=== PATIENT | male | born 1975 | race Caucasian/White ===

== ENCOUNTER 2016-11-24 19:02 | Emergency (ER) | payer MEDICARE, OTHER ==
[~2016-11-24] VITALS: Ht 180.3 cm; Wt 75.0 kg
[~2016-11-24 19:02] MED LIST: ALDACTONE 100M100 MG PO; ALDACTONE 25MG25 M1 PO; ASPIRIN 32325 MG/TAB PO; ASPIRIN 81M81 MG/TA2 PO; ASPIRIN E.C. 8181 MG PO; ATIVAN 0.50.5 MG/TAB PO; ATIVAN 1MG T1 MG/TAB PO; ATIVAN 2MG/ML2 MG/ML IV; BENADRYL50 MG PO; CEFTIN500 MG PO; CEPHALEXIN500 M1 PO; CLONAZEPAM PO; DAZIDOX10 MG PO; DILAUDID 2MG TAB2 MG PO; DILAUDID 4MG TAB4 MG PO; DOXYCYCLINE 10100 MG PO; FLOMAX 0.40.4 MG/CAP PO; FOLIC ACID0.4 MG PO; IBU800 M1 PO; K-DUR20 MEQ PO; KLOR-CON M2020 MEQ PO; LASIX 20MG TABL20 MG PO; LASIX 40MG TABL40 MG PO; LEADER CLE17 GM/Dose PO; LEVSIN0.125 M1 PO; LIBRIUM 25M25 MG/CAP PO; MELATONIN5 M1 SL; METHOTREXATE25 MG/M2 IJ; MIRTAZAPINE7.5 MG PO; MORPHINE 1515 MG/TAB PO; MOTRIN 400400 MG/TAB PO; MULTI VITAMINS1 TAB PO; NATURE'S BLEND100 M2 PO; NEURONTIN100 MG/CAP PO; NEURONTIN300 MG/CAP PO; NIGHT-TIME COL300 ML PO; NORCO 325 MG-101 TAB PO; NORCO 325 MG-51 TAB PO; NORCO 325 MG-7.1 TAB PO; OMNICEF 300MG300 MG PO; PERCOCET 325 MG1 TA2 PO; PHENERGAN 25 TA25 MG PO; PREDNISONE20 MG PO; PRIL40 PO; PRILOSEC40 MG PO; PRINIVIL10 MG PO; PROMETHAZINE12.5 M5 PO; ROXICODONE 55 MG/TAB PO; SENOKOT S 50 MG1 TAB PO; ULTRAM 50MG TAB50 MG PO; VALIUM 5MG T5 MG/TAB PO; VITAMIN D 50,1.25 MG PO; ZOFRAN 4MG T4 MG/TAB PO; ZOFRAN ODT4 MG PO; ZOHYDRO ER10 MG PO
[2016-11-24 19:04] VITALS: TEMP 99.1
[2016-11-24] MEDS ORDERED: NORCO 325 MG-51 TAB PO (19:19)
[2016-11-24 19:39] LABS: PH 6 (5-8); SQUAMOUS EPITHELIAL None Seen /hpf; URINE APPEARANCE Clear; URINE BACTERIA None Seen /hpf; URINE BILIRUBIN Negative (NEGATIVE); URINE BLOOD Negative (NEGATIVE); URINE COLOR Yellow; URINE GLUCOSE Negative (NEGATIVE); URINE KETONE Negative (NEGATIVE); URINE RBC 0-2 /hpf; URINE UROBILINOGEN >=4.0 mg/dL (NEGATIVE); URINE WBC 0-2 /hpf
[2016-11-24 19:44] LABS: BASO % 0.2 % (0.0-2.0); EOS # 0.2 (0.0-0.7); EOS % 2.2 % (0-4.0); GRAN # 7.7 (1.4-6.5); GRAN % 75.4 % (42.2-75.2); HEMATOCRIT 31.8 % (42.0-52.0); HEMOGLOBIN 9.1 g/dl (13.5-18.0); LYMPH # 1.1 (1.2-3.4); LYMPH % 10.7 % (20.0-51.0); MEAN CELL VOLUME 74 fl (80.0-100.0); MEAN CORPUSCULAR HEMOGLOBIN 21 pg (27.0-31.0); MEAN CORPUSCULAR HGB CONC 29 g/dl (33.0-37.0); MEAN PLATELET VOLUME 9.9 fl (7.4-10.4); MONO # 1.1 (0.1-0.6); MONO % 10.4 % (1.7-9.3); PLATELET COUNT 185 K/mm3 (130-400); REDCELL DISTRIBUTION WIDTH-CV 22.4 % (11.5-14.5); WHITE BLOOD COUNT 10.2 K/mm3 (4.8-10.8)
[2016-11-24 19:45] LABS: ADJUSTED CALCIUM 9.3 mg/dL (8.4-10.2); ALBUMIN 3.6 gm/dL (3.5-5.0); BILIRUBIN,TOTAL 1.6 mg/dL (0.0-1.0); CREATININE, serum 0.57 mg/dL (0.66-1.25); POTASSIUM 4.9 mmol/L (3.4-5.0); TOTAL PROTEIN 7.7 gm/dL (6.4-8.2)
[2016-11-24 21:01] VITALS: BP 111/77; PULSE 71
[2016-11-24] MEDS ORDERED: CIPRO 500MG TA500 MG PO (21:04)
== END 2016-11-24 22:05 | disposition home or self-care (01) ==
LOC: COL.ER 19:02
PROVIDERS: Emergency Medicine
DX: R10.2 Pelvic and perineal pain (principal); K74.60 Unspecified cirrhosis of liver; R18.8 Other ascites
CPT/HCPCS: J1170; J2405; J7030; Q9967

== ENCOUNTER 2017-03-24 16:08 | Emergency (ER) | payer MEDICARE ==
[~2017-03-24] VITALS: Ht 182.9 cm; Wt 79.5 kg
[~2017-03-24 16:08] MED LIST changes: +CIPRO 500MG TA500 MG PO
[2017-03-24 16:14] VITALS: BP 122/79; TEMP 99
[2017-03-24 17:19] LABS: BASO % 0.1 % (0.0-2.0); EOS # 1.6 (0.0-0.7); EOS % 13.4 % (0-4.0); GRAN # 8.6 (1.4-6.5); GRAN % 70.2 % (42.2-75.2); LYMPH # 1.7 (1.2-3.4); MEAN CELL VOLUME 75 fl (80.0-100.0); MEAN CORPUSCULAR HGB CONC 30 g/dl (33.0-37.0); MONO # 0.2 (0.1-0.6); MONO % 1.8 % (1.7-9.3); PLATELET COUNT 170 K/mm3 (130-400); RED BLOOD COUNT 4.19 M/mm3 (4.20-5.60); REDCELL DISTRIBUTION WIDTH-CV 19.3 % (11.5-14.5); WHITE BLOOD COUNT 12.2 K/mm3 (4.8-10.8)
[2017-03-24 17:20] LABS: HEMATOCRIT 31.2 % (42.0-52.0); HEMOGLOBIN 9.3 g/dl (13.5-18.0); MEAN CORPUSCULAR HEMOGLOBIN 22 pg (27.0-31.0)
[2017-03-24 17:29] LABS: C-REACTIVE PROTEIN 1.5 mg/dL (0.0-0.9); CALCIUM 8.8 mg/dL (8.4-10.2); CREATININE, serum 0.49 mg/dL (0.66-1.25); POTASSIUM 4.3 mmol/L (3.4-5.0)
[2017-03-24] MEDS ORDERED: AMOXICILLIN 8751 TAB PO (19:41)
[2017-03-24] MEDS ORDERED: NORCO 325 MG-7.1 TAB PO (19:42)
[2017-03-24 20:07] VITALS: PULSE 87
== END 2017-03-24 20:07 | disposition home or self-care (01) ==
LOC: COL.ER 16:08
PROVIDERS: Emergency Medicine
DX: S61.251A Open bite of left index finger without damage to nail, initial encounter (principal); L03.012 Cellulitis of left finger; W54.0XXA Bitten by dog, initial encounter; Y92.009 Unspecified place in unspecified non-institutional (private) residence as the place of occurrence of the external cause
CPT/HCPCS: J0696; J1170; J2405

== ENCOUNTER 2017-04-23 02:07 | Emergency (ER) | payer MEDICARE ==
[~2017-04-23] VITALS: Ht 182.9 cm; Wt 75.0 kg
[~2017-04-23 02:07] MED LIST changes: +AMOXICILLIN 8751 TAB PO
[2017-04-23 02:08] VITALS: TEMP 98.1
[2017-04-23 02:48] LABS: MEAN CELL VOLUME 74 fl (80.0-100.0); MEAN CORPUSCULAR HGB CONC 29 g/dl (33.0-37.0); MEAN PLATELET VOLUME 9.4 fl (7.4-10.4); PLATELET COUNT 120 K/mm3 (130-400); RED BLOOD COUNT 3.49 M/mm3 (4.20-5.60); REDCELL DISTRIBUTION WIDTH-CV 19.1 % (11.5-14.5); WHITE BLOOD COUNT 14.1 K/mm3 (4.8-10.8)
[2017-04-23 02:49] LABS: HEMATOCRIT 25.9 % (42.0-52.0); HEMOGLOBIN 7.5 g/dl (13.5-18.0); MEAN CORPUSCULAR HEMOGLOBIN 21 pg (27.0-31.0)
[2017-04-23 02:50] LABS: ADD PATHOLOGY DIFF REVIEW NO
[2017-04-23 02:56] LABS: ANISOCYTOSIS 2+; BAND 2 % (0-10); EOSINOPHIL 33 % (0-4); HYPOCHROMIA 3+; MICROCYTOSIS 2+; NEUTROPHILS 48 % (42.0-75.2); PLATELET ESTIMATE NORMAL (NORMAL); TOTAL CELLS COUNTED 100
[2017-04-23 03:01] LABS: ADJUSTED CALCIUM 9.2 mg/dL (8.4-10.2); ALANINE AMINOTRANSFERASE 27 U/L (21-72); ALBUMIN 2.8 gm/dL (3.5-5.0); ALKALINE PHOSPHATASE 142 U/L (50-136); ANION GAP 7 mmol/L (7-16); BILIRUBIN,TOTAL 0.5 mg/dL (0.0-1.0); BLOOD UREA NITROGEN 7 mg/dL (9-20); C-REACTIVE PROTEIN 0.8 mg/dL (0.0-0.9); CALCIUM 8.2 mg/dL (8.4-10.2); CARBON DIOXIDE 23 mmol/L (22-30); CHLORIDE 108 mmol/L (98-107); CREATININE, serum 0.58 mg/dL (0.66-1.25); GLUCOSE 90 mg/dL (74-106); LIPASE 58 U/L (23-300); POTASSIUM 3.4 mmol/L (3.4-5.0); SODIUM 137 mmol/L (137-145); TOTAL PROTEIN 5.9 gm/dL (6.4-8.2)
[2017-04-23 03:10] LABS: TROPONIN-I < 0.012 ng/mL (0.000-0.034)
[2017-04-23] MEDS ORDERED: NEURONTIN800 MG/TAB PO (03:17)
[2017-04-23] MEDS ORDERED: PROVENTIL0.09 MG/A1 IH (03:17)
[2017-04-23] MEDS ORDERED: XANAX 1MG1 MG PO (03:18)
[2017-04-23 07:21] VITALS: BP 114/84; PULSE 81
== END 2017-04-23 07:25 | disposition short-term general hospital (02) ==
LOC: COL.ER 02:07 → MEDICAL 04:08 → COL.ER 04:08
PROVIDERS: Emergency Medicine
DX: S09.90XA Unspecified injury of head, initial encounter (principal); R07.9 Chest pain, unspecified; D64.9 Anemia, unspecified; R11.10 Vomiting, unspecified; R19.8 Other specified symptoms and signs involving the digestive system and abdomen; K70.30 Alcoholic cirrhosis of liver without ascites; I25.10 Atherosclerotic heart disease of native coronary artery without angina pectoris; Z95.5 Presence of coronary angioplasty implant and graft; F17.200 Nicotine dependence, unspecified, uncomplicated; S00.93XA Contusion of unspecified part of head, initial encounter; S00.83XA Contusion of other part of head, initial encounter; S20.212A Contusion of left front wall of thorax, initial encounter; Y04.0XXA Assault by unarmed brawl or fight, initial encounter
CPT/HCPCS: C9113; J2270; J2405; J7030

== ENCOUNTER 2017-06-03 12:07 | Inpatient (IN) | payer MEDICARE, MEDICAID ==
[~2017-06-03] VITALS: Ht 182.9 cm; Wt 77.0 kg
[~2017-06-03 12:07] MED LIST changes: +NEURONTIN800 MG/TAB PO; +PROVENTIL0.09 MG/A1 IH; +XANAX 1MG1 MG PO
[2017-06-03 12:50] LABS: BASO % 0.2 % (0.0-2.0); EOS # 8.5 (0.0-0.7); EOS % 42.7 % (0-4.0); GRAN # 8.5 (1.4-6.5); GRAN % 42.5 % (42.2-75.2); LYMPH % 10.2 % (20.0-51.0); MEAN CELL VOLUME 77 fl (80.0-100.0); MEAN CORPUSCULAR HGB CONC 29 g/dl (33.0-37.0); MEAN PLATELET VOLUME 9.4 fl (7.4-10.4); MONO # 0.8 (0.1-0.6); PLATELET COUNT 155 K/mm3 (130-400); REDCELL DISTRIBUTION WIDTH-CV 21.9 % (11.5-14.5)
[2017-06-03 13:08] LABS: ADJUSTED CALCIUM 9.5 mg/dL (8.4-10.2); ALBUMIN 2.7 gm/dL (3.5-5.0); BILIRUBIN,TOTAL 0.6 mg/dL (0.0-1.0); C-REACTIVE PROTEIN 7.1 mg/dL (0.0-0.9); CALCIUM 8.5 mg/dL (8.4-10.2); CREATININE, serum 0.56 mg/dL (0.66-1.25); POTASSIUM 4.5 mmol/L (3.4-5.0); TOTAL PROTEIN 5.8 gm/dL (6.4-8.2)
[2017-06-03 13:18] LABS: HEMATOCRIT 28.6 % (42.0-52.0); HEMOGLOBIN 8.2 g/dl (13.5-18.0); MEAN CORPUSCULAR HEMOGLOBIN 22 pg (27.0-31.0); WHITE BLOOD COUNT 19.9 K/mm3 (4.8-10.8)
[2017-06-03 13:26] LABS: ADD PATHOLOGY DIFF REVIEW NO
[2017-06-03 13:32] LABS: BAND 2 % (0-10); EOSINOPHIL 15 % (0-4); NEUTROPHILS 62 % (42.0-75.2); PLATELET ESTIMATE NORMAL (NORMAL); TOTAL CELLS COUNTED 100
[2017-06-03 13:33] LABS: ANISOCYTOSIS 1+; HYPOCHROMIA 1+
[2017-06-03 15:17] VITALS: BP 113/68; PULSE 105; TEMP 99.7
[2017-06-03] MEDS ORDERED: MULTI VITAMINS1 TAB PO (15:45)
[2017-06-03] MEDS ORDERED: B-121000 MCG PO (15:46)
[2017-06-03 16:00] VITALS: BP 113/68; PULSE 105; TEMP 99.7
[2017-06-03 20:08] VITALS: BP 125/74; PULSE 106; TEMP 98.9
[2017-06-03 23:23] VITALS: BP 117/73; PULSE 110; TEMP 98.7
[2017-06-03 23:23] LABS: PH 5 (5-8); SQUAMOUS EPITHELIAL None Seen /hpf; URINE APPEARANCE Clear; URINE BACTERIA None Seen /hpf; URINE BILIRUBIN Negative (NEGATIVE); URINE BLOOD Negative (NEGATIVE); URINE COLOR Amber; URINE GLUCOSE 3+ (NEGATIVE); URINE KETONE Negative (NEGATIVE); URINE UROBILINOGEN >=4.0 mg/dL (NEGATIVE)
[2017-06-04 02:47] VITALS: BP 106/58; PULSE 104; TEMP 101.8
[2017-06-04 06:20] VITALS: TEMP 100.5
[2017-06-04 07:48] LABS: MEAN CELL VOLUME 76 fl (80.0-100.0); MEAN CORPUSCULAR HGB CONC 29 g/dl (33.0-37.0); MEAN PLATELET VOLUME 9.5 fl (7.4-10.4); PLATELET COUNT 175 K/mm3 (130-400); RED BLOOD COUNT 3.81 M/mm3 (4.20-5.60); REDCELL DISTRIBUTION WIDTH-CV 21.9 % (11.5-14.5); WHITE BLOOD COUNT 19.5 K/mm3 (4.8-10.8)
[2017-06-04 08:05] VITALS: BP 103/68; PULSE 91; TEMP 98.3
[2017-06-04 08:07] LABS: HEMATOCRIT 28.9 % (42.0-52.0); HEMOGLOBIN 8.4 g/dl (13.5-18.0); MEAN CORPUSCULAR HEMOGLOBIN 22 pg (27.0-31.0)
[2017-06-04 08:19] LABS: CALCIUM 7.8 mg/dL (8.4-10.2); CREATININE, serum 0.52 mg/dL (0.66-1.25)
[2017-06-04 12:34] VITALS: BP 104/72; PULSE 87; TEMP 98.5
[2017-06-04 16:58] VITALS: BP 105/66; PULSE 106; TEMP 98.5
[2017-06-04 20:47] VITALS: BP 119/69; PULSE 108; TEMP 98.1
[2017-06-05] VITALS (7 sets, daily range): BP systolic 96–125; BP diastolic 52–83; PULSE 63–104; TEMP 98.1–98.8
[2017-06-05 07:30] LABS: BASO % 0.1 % (0.0-2.0); EOS # 10.1 (0.0-0.7); GRAN # 5.6 (1.4-6.5); GRAN % 30.1 % (42.2-75.2); MEAN CELL VOLUME 76 fl (80.0-100.0); MEAN CORPUSCULAR HGB CONC 29 g/dl (33.0-37.0); MEAN PLATELET VOLUME 9.2 fl (7.4-10.4); MONO # 0.8 (0.1-0.6); MONO % 4.4 % (1.7-9.3); PLATELET COUNT 184 K/mm3 (130-400); RED BLOOD COUNT 3.49 M/mm3 (4.20-5.60); REDCELL DISTRIBUTION WIDTH-CV 22.5 % (11.5-14.5); WHITE BLOOD COUNT 18.6 K/mm3 (4.8-10.8)
[2017-06-05 07:37] LABS: CALCIUM 7.9 mg/dL (8.4-10.2); CREATININE, serum 0.49 mg/dL (0.66-1.25); MAGNESIUM 1.7 mg/dL (1.6-2.3); POTASSIUM 3.8 mmol/L (3.4-5.0)
[2017-06-05 07:38] LABS: HEMATOCRIT 26.6 % (42.0-52.0); HEMOGLOBIN 7.8 g/dl (13.5-18.0); MEAN CORPUSCULAR HEMOGLOBIN 22 pg (27.0-31.0)
[2017-06-06] VITALS (9 sets, daily range): BP systolic 98–135; BP diastolic 57–91; PULSE 87–107; TEMP 97.3–98.5
[2017-06-06 03:28] LABS: BASO % 0.1 % (0.0-2.0); EOS # 7.3 (0.0-0.7); GRAN # 4.3 (1.4-6.5); GRAN % 30.2 % (42.2-75.2); LYMPH # 1.9 (1.2-3.4); LYMPH % 13.3 % (20.0-51.0); MEAN CELL VOLUME 77 fl (80.0-100.0); MEAN CORPUSCULAR HGB CONC 29 g/dl (33.0-37.0); MEAN PLATELET VOLUME 8.8 fl (7.4-10.4); MONO # 0.8 (0.1-0.6); MONO % 5.3 % (1.7-9.3); PLATELET COUNT 167 K/mm3 (130-400); RED BLOOD COUNT 3.37 M/mm3 (4.20-5.60); REDCELL DISTRIBUTION WIDTH-CV 22.5 % (11.5-14.5); WHITE BLOOD COUNT 14.4 K/mm3 (4.8-10.8)
[2017-06-06 03:29] LABS: EOS % 50.8 % (0-4.0); HEMATOCRIT 25.9 % (42.0-52.0); HEMOGLOBIN 7.5 g/dl (13.5-18.0); MEAN CORPUSCULAR HEMOGLOBIN 22 pg (27.0-31.0)
[2017-06-06 03:45] LABS: CREATININE, serum 0.51 mg/dL (0.66-1.25)
[2017-06-06 03:49] LABS: VANCOMYCIN TROUGH 7.45 ug/mL (7.00-20.00)
[2017-06-07 00:47] VITALS: BP 124/78; PULSE 107; TEMP 97.6
[2017-06-07 04:45] VITALS: BP 106/75; PULSE 98; TEMP 97.9
[2017-06-07 07:26] LABS: BASO % 0.1 % (0.0-2.0); EOS % 0.3 % (0-4.0); GRAN # 5.8 (1.4-6.5); GRAN % 76.5 % (42.2-75.2); LYMPH # 0.9 (1.2-3.4); LYMPH % 12.2 % (20.0-51.0); MEAN CELL VOLUME 77 fl (80.0-100.0); MEAN CORPUSCULAR HGB CONC 28 g/dl (33.0-37.0); MEAN PLATELET VOLUME 9.3 fl (7.4-10.4); MONO # 0.8 (0.1-0.6); MONO % 10.2 % (1.7-9.3); PLATELET COUNT 173 K/mm3 (130-400); RED BLOOD COUNT 3.26 M/mm3 (4.20-5.60); REDCELL DISTRIBUTION WIDTH-CV 22.3 % (11.5-14.5); WHITE BLOOD COUNT 7.6 K/mm3 (4.8-10.8)
[2017-06-07 07:42] VITALS: BP 120/83; PULSE 80; TEMP 97.9
[2017-06-07 07:47] LABS: HEMATOCRIT 25.2 % (42.0-52.0); MEAN CORPUSCULAR HEMOGLOBIN 21 pg (27.0-31.0)
[2017-06-07 11:34] VITALS: BP 122/75; PULSE 97; TEMP 98.4
[2017-06-07 16:12] VITALS: BP 136/89; PULSE 96; TEMP 97.6
[2017-06-07 20:59] VITALS: BP 134/87; PULSE 104; TEMP 98.1
[2017-06-08] VITALS (7 sets, daily range): BP systolic 96–125; BP diastolic 59–84; PULSE 83–105; TEMP 98.3–99.2
[2017-06-08 07:30] LABS: BASO % 0.2 % (0.0-2.0); EOS # 0.6 (0.0-0.7); EOS % 6.3 % (0-4.0); GRAN # 5.2 (1.4-6.5); GRAN % 59.6 % (42.2-75.2); LYMPH # 1.9 (1.2-3.4); LYMPH % 21.8 % (20.0-51.0); MEAN CELL VOLUME 77 fl (80.0-100.0); MEAN CORPUSCULAR HGB CONC 28 g/dl (33.0-37.0); MEAN PLATELET VOLUME 9.1 fl (7.4-10.4); MONO % 11.8 % (1.7-9.3); PLATELET COUNT 164 K/mm3 (130-400); RED BLOOD COUNT 3.31 M/mm3 (4.20-5.60); REDCELL DISTRIBUTION WIDTH-CV 22.1 % (11.5-14.5); WHITE BLOOD COUNT 8.8 K/mm3 (4.8-10.8)
[2017-06-08 07:35] LABS: HEMATOCRIT 25.4 % (42.0-52.0); HEMOGLOBIN 7.2 g/dl (13.5-18.0); MEAN CORPUSCULAR HEMOGLOBIN 22 pg (27.0-31.0)
[2017-06-08] MEDS ORDERED: DOXYCYCLINE 10100 MG PO (09:11)
[2017-06-08] MEDS ORDERED: REMERON 15M15 MG/TA1 PO (09:13)
[2017-06-08] MEDS ORDERED: VISTARIL 2525 MG/CAP PO (09:14)
[2017-06-08] MEDS ORDERED: ASPIRIN 81M81 MG/TA2 PO (09:16)
[2017-06-08] MEDS ORDERED: NORCO 325 MG-7.1 TAB PO (09:46)
[2017-06-09 04:53] VITALS: BP 119/67; PULSE 74; TEMP 98.1
[2017-06-09 08:24] VITALS: BP 129/76; PULSE 107; TEMP 98.6
== END 2017-06-09 11:37 | disposition home or self-care (01) | DRG 854 ==
LOC: COL.ER 12:07 → MEDICAL 13:53
PROVIDERS: Family Medicine; Internal Medicine; Orthopaedic Surgery; Physician Assistant
PROC: 0JNQ0ZZ Release Right Foot Subcutaneous Tissue and Fascia, Open Approach (ICD-10-PCS; 2017-06-06)
PROC: 0KBS0ZX Excision of Right Lower Leg Muscle, Open Approach, Diagnostic (ICD-10-PCS; 2017-06-06)
PROC: 01NG0ZZ Release Tibial Nerve, Open Approach (ICD-10-PCS; principal; 2017-06-06 16:00)
DX: A41.9 Sepsis, unspecified organism (principal); L03.115 Cellulitis of right lower limb; F33.2 Major depressive disorder, recurrent severe without psychotic features; I25.10 Atherosclerotic heart disease of native coronary artery without angina pectoris; J44.9 Chronic obstructive pulmonary disease, unspecified; Z95.5 Presence of coronary angioplasty implant and graft; M65.9 Synovitis and tenosynovitis, unspecified; M60.9 Myositis, unspecified; I10 Essential (primary) hypertension; I48.91 Unspecified atrial fibrillation; K70.30 Alcoholic cirrhosis of liver without ascites; K72.90 Hepatic failure, unspecified without coma; G62.1 Alcoholic polyneuropathy; F17.210 Nicotine dependence, cigarettes, uncomplicated; F41.1 Generalized anxiety disorder; F41.0 Panic disorder [episodic paroxysmal anxiety]; D64.9 Anemia, unspecified; F10.21 Alcohol dependence, in remission
CPT/HCPCS: 90791-AI; 99223-AI; 99232-AI; 99233-AI; 99239; J1100; J1650; J1720; J1885; J2270; J2405; J2543; J2704; J3010; J3370; J7030; J7042; J7050; J7512

== ENCOUNTER → 2017-06-14 | Outpatient (CLI) | payer MEDICARE ==
[~2017-06-14] MED LIST changes: +B-121000 MCG PO; +REMERON 15M15 MG/TA1 PO; +VISTARIL 2525 MG/CAP PO
[2017-06-14 16:04] LABS: MEAN CELL VOLUME 76 fl (80.0-100.0); MEAN CORPUSCULAR HGB CONC 29 g/dl (33.0-37.0); PLATELET COUNT 309 K/mm3 (130-400); RED BLOOD COUNT 4.01 M/mm3 (4.20-5.60); WHITE BLOOD COUNT 16.3 K/mm3 (4.8-10.8)
[2017-06-14 16:15] LABS: HEMATOCRIT 30.3 % (42.0-52.0); HEMOGLOBIN 8.7 g/dl (13.5-18.0); MEAN CORPUSCULAR HEMOGLOBIN 22 pg (27.0-31.0)
[2017-06-14 16:16] LABS: ADD PATHOLOGY DIFF REVIEW NO
[2017-06-14 16:23] LABS: CALCIUM 9.1 mg/dL (8.4-10.2); CREATININE, serum 0.62 mg/dL (0.66-1.25)
[2017-06-14 16:51] LABS: ANISOCYTOSIS 3+; BAND 8 % (0-10); EOSINOPHIL 17 % (0-4); HYPOCHROMIA 2+; MICROCYTOSIS 2+; NEUTROPHILS 60 % (42.0-75.2); PLATELET ESTIMATE NORMAL (NORMAL); TOTAL CELLS COUNTED 100
[2017-06-14 16:52] LABS: OVALOCYTES 1+
== END ==
LOC: COL.PUL 10-19 13:00 → COL.LAB 12:47
PROVIDERS: Internal Medicine Pulmonary Disease
DX: D64.9 Anemia, unspecified (principal); K70.30 Alcoholic cirrhosis of liver without ascites; I85.10 Secondary esophageal varices without bleeding; J44.9 Chronic obstructive pulmonary disease, unspecified; F10.21 Alcohol dependence, in remission

== ENCOUNTER 2017-06-30 15:30 | Emergency (ER) | payer MEDICARE ==
[~2017-06-30] VITALS: Ht 182.9 cm; Wt 77.3 kg
[2017-06-30] MEDS ORDERED: NATURE'S BLEND100 M2 PO (15:52)
[2017-06-30] MEDS ORDERED: PROTONIX 40MG T40 MG PO (15:53)
[2017-06-30 16:20] LABS: MEAN CELL VOLUME 75 fl (80.0-100.0); MEAN CORPUSCULAR HGB CONC 29 g/dl (33.0-37.0); MEAN PLATELET VOLUME 9.2 fl (7.4-10.4); PLATELET COUNT 164 K/mm3 (130-400); RED BLOOD COUNT 4.22 M/mm3 (4.20-5.60); REDCELL DISTRIBUTION WIDTH-CV 20.7 % (11.5-14.5); WHITE BLOOD COUNT 15.4 K/mm3 (4.8-10.8)
[2017-06-30 16:27] LABS: ADD PATHOLOGY DIFF REVIEW NO; HEMATOCRIT 31.8 % (42.0-52.0); HEMOGLOBIN 9.1 g/dl (13.5-18.0); MEAN CORPUSCULAR HEMOGLOBIN 22 pg (27.0-31.0)
[2017-06-30 16:36] LABS: BAND 3 % (0-10); EOSINOPHIL 21 % (0-4); NEUTROPHILS 69 % (42.0-75.2); PLATELET ESTIMATE NORMAL (NORMAL); TOTAL CELLS COUNTED 100
[2017-06-30 16:37] LABS: ANISOCYTOSIS 2+; HYPOCHROMIA 2+
[2017-06-30 16:54] LABS: ADJUSTED CALCIUM 9.3 mg/dL (8.4-10.2); ALBUMIN 2.8 gm/dL (3.5-5.0); BILIRUBIN,TOTAL 0.8 mg/dL (0.0-1.0); C-REACTIVE PROTEIN 1.9 mg/dL (0.0-0.9); CALCIUM 8.3 mg/dL (8.4-10.2); CREATININE, serum 0.54 mg/dL (0.66-1.25); POTASSIUM 3.6 mmol/L (3.4-5.0)
[2017-06-30 17:56] VITALS: TEMP 99.4
[2017-06-30] MEDS ORDERED: EPIPEN 2-PAK1 MG/ML IM (19:52)
[2017-06-30 20:00] VITALS: BP 121/71; PULSE 94
== END 2017-06-30 20:10 | disposition home or self-care (01) ==
LOC: COL.ER 15:30
PROVIDERS: Emergency Medicine
DX: T78.40XA Allergy, unspecified, initial encounter (principal); I11.0 Hypertensive heart disease with heart failure; I25.10 Atherosclerotic heart disease of native coronary artery without angina pectoris; I48.91 Unspecified atrial fibrillation; I50.9 Heart failure, unspecified; F17.210 Nicotine dependence, cigarettes, uncomplicated; Z87.19 Personal history of other diseases of the digestive system; Z79.82 Long term (current) use of aspirin; Z95.5 Presence of coronary angioplasty implant and graft
CPT/HCPCS: J1885; J2060; J7030; Q9967

== ENCOUNTER → 2017-09-13 | Outpatient (CLI) | payer MEDICARE, MEDICAID ==
[~2017-09-13] MED LIST changes: +EPIPEN 2-PAK1 MG/ML IM; +PROTONIX 40MG T40 MG PO
== END ==
LOC: COL.LAB 15:20
DX: Z01.89 Encounter for other specified special examinations (principal)

== ENCOUNTER → 2017-09-20 | Outpatient (CLI) | payer MEDICARE, MEDICAID | LOC: COL.RAD 10:11 | DX: I81 Portal vein thrombosis (principal); Z90.49 Acquired absence of other specified parts of digestive tract | CPT/HCPCS: Q9967 ==

== ENCOUNTER → 2017-11-01 | Outpatient (CLI) | payer MEDICARE, MEDICAID ==
[2017-11-01 11:32] LABS: CALCIUM 8.6 mg/dL (8.4-10.2); CREATININE, serum 0.57 mg/dL (0.66-1.25); POTASSIUM 4.3 mmol/L (3.4-5.0)
== END ==
LOC: COL.RAD 10:51
PROVIDERS: Family Medicine
DX: I82.890 Acute embolism and thrombosis of other specified veins (principal); K74.60 Unspecified cirrhosis of liver; K76.6 Portal hypertension; K63.89 Other specified diseases of intestine; J90 Pleural effusion, not elsewhere classified; K44.9 Diaphragmatic hernia without obstruction or gangrene; Z90.49 Acquired absence of other specified parts of digestive tract
CPT/HCPCS: Q9967

== ENCOUNTER 2017-11-14 11:10 | Observation (INO) | payer MEDICARE, MEDICAID ==
[2017-09-13 17:26] LABS: MEAN CELL VOLUME 80 fl (80.0-100.0); MEAN CORPUSCULAR HGB CONC 29 g/dl (33.0-37.0); MEAN PLATELET VOLUME 9.1 fl (7.4-10.4); PLATELET COUNT 231 K/mm3 (130-400); RED BLOOD COUNT 4.07 M/mm3 (4.20-5.60); REDCELL DISTRIBUTION WIDTH-CV 20.1 % (11.5-14.5)
[2017-09-13 17:28] LABS: HEMATOCRIT 32.5 % (42.0-52.0); HEMOGLOBIN 9.3 g/dl (13.5-18.0); MEAN CORPUSCULAR HEMOGLOBIN 23 pg (27.0-31.0)
[2017-09-13 17:38] LABS: INR 1.1 (0.8-3.0); PROTHROMBIN TIME 12.9 SECONDS (9.7-12.8)
[2017-09-13 17:46] LABS: ALBUMIN 3.2 gm/dL (3.5-5.0); BILIRUBIN,TOTAL 0.5 mg/dL (0.0-1.0); CALCIUM 9.1 mg/dL (8.4-10.2); CREATININE, serum 0.64 mg/dL (0.66-1.25); POTASSIUM 3.7 mmol/L (3.4-5.0); TOTAL PROTEIN 6.9 gm/dL (6.4-8.2)
[2017-09-13 17:48] LABS: ANISOCYTOSIS 2+; BAND 4 % (0-10); EOSINOPHIL 15 % (0-4); HYPOCHROMIA 3+; LYMPHOCYTE 19 % (20.0-51.0); MICROCYTOSIS 1+; NEUTROPHILS 59 % (42.0-75.2); PLATELET ESTIMATE NORMAL (NORMAL)
[2017-11-14] VITALS (8 sets, daily range): BP systolic 104–121; BP diastolic 72–96; PULSE 83–108; TEMP 97.9–98
[~2017-11-14] VITALS: Ht 180.3 cm; Wt 74.3 kg
[~2017-11-14 11:10] MED LIST changes: +K-DUR 10 MEQ T10 MEQ PO; -K-DUR20 MEQ PO; -NEURONTIN800 MG/TAB PO
[2017-11-14] MEDS ORDERED: EPIPEN 2-PAK1 MG/ML IM (12:14)
[2017-11-14] MEDS ORDERED: FOLIC ACID 11 MG/TA1 PO (12:14)
[2017-11-14] MEDS ORDERED: GLUCOPHAGE1000 MG PO (12:15)
[2017-11-14] MEDS ORDERED: PREDNISONE20 MG PO (12:15)
[2017-11-14] MEDS ORDERED: VENTOLIN0.09 MG IH (12:15)
[2017-11-14] MEDS ORDERED: ROXICODONE 55 MG/TAB PO (12:16)
[2017-11-14 12:21] LABS: BASO % 0.2 % (0.0-2.0); EOS # 2.1 (0.0-0.7); EOS % 19.7 % (0-4.0); GRAN # 5.7 (1.4-6.5); GRAN % 53.5 % (42.2-75.2); LYMPH # 2.4 (1.2-3.4); LYMPH % 22.3 % (20.0-51.0); MEAN CELL VOLUME 77 fl (80.0-100.0); MEAN CORPUSCULAR HGB CONC 30 g/dl (33.0-37.0); MEAN PLATELET VOLUME 8.9 fl (7.4-10.4); MONO # 0.4 (0.1-0.6); PLATELET COUNT 229 K/mm3 (130-400); RED BLOOD COUNT 4.25 M/mm3 (4.20-5.60); REDCELL DISTRIBUTION WIDTH-CV 21.1 % (11.5-14.5)
[2017-11-14 12:22] LABS: HEMATOCRIT 32.9 % (42.0-52.0); HEMOGLOBIN 9.7 g/dl (13.5-18.0); MEAN CORPUSCULAR HEMOGLOBIN 23 pg (27.0-31.0)
[2017-11-14 12:24] LABS: INR 1.1 (0.8-3.0); PROTHROMBIN TIME 12.4 SECONDS (9.7-12.8)
[2017-11-14 12:31] LABS: ALBUMIN 3.1 gm/dL (3.5-5.0); BILIRUBIN,TOTAL 0.7 mg/dL (0.0-1.0); CALCIUM 8.9 mg/dL (8.4-10.2); CREATININE, serum 0.54 mg/dL (0.66-1.25); POTASSIUM 4.4 mmol/L (3.4-5.0); TOTAL PROTEIN 6.4 gm/dL (6.4-8.2)
[2017-11-15 01:55] VITALS: BP 119/68; PULSE 104; TEMP 97.7
[2017-11-15 05:32] VITALS: BP 103/67; PULSE 84; TEMP 97.9
== END 2017-11-15 09:25 | disposition home or self-care (01) ==
LOC: SDCO 11:10 → SURG 17:00
PROVIDERS: Orthopaedic Surgery; Registered Nurse
DX: M25.312 Other instability, left shoulder (principal); Z53.33 Arthroscopic surgical procedure converted to open procedure; Z79.01 Long term (current) use of anticoagulants; Z88.6 Allergy status to analgesic agent; Z88.8 Allergy status to other drugs, medicaments and biological substances; Z79.82 Long term (current) use of aspirin; J44.9 Chronic obstructive pulmonary disease, unspecified; K21.9 Gastro-esophageal reflux disease without esophagitis; G43.909 Migraine, unspecified, not intractable, without status migrainosus; D64.9 Anemia, unspecified; G47.30 Sleep apnea, unspecified; F17.210 Nicotine dependence, cigarettes, uncomplicated; M06.9 Rheumatoid arthritis, unspecified; I25.10 Atherosclerotic heart disease of native coronary artery without angina pectoris; Z95.5 Presence of coronary angioplasty implant and graft; I10 Essential (primary) hypertension; K22.70 Barrett's esophagus without dysplasia; K74.60 Unspecified cirrhosis of liver; G40.909 Epilepsy, unspecified, not intractable, without status epilepticus; F32.9 Major depressive disorder, single episode, unspecified
CPT/HCPCS: G0378; J0330; J0690; J1100; J1720; J2250; J2405; J2704; J3010; J7030; J7042; J7512

== ENCOUNTER 2017-11-24 22:01 | Emergency (ER) | payer MEDICARE, MEDICAID ==
[~2017-11-24] VITALS: Ht 180.3 cm; Wt 73.6 kg
[~2017-11-24 22:01] MED LIST changes: +FOLIC ACID 11 MG/TA1 PO; +GLUCOPHAGE1000 MG PO; +VENTOLIN0.09 MG IH
[2017-11-24 22:14] VITALS: BP 133/76; TEMP 96.9
[2017-11-25 01:11] VITALS: PULSE 96
== END 2017-11-25 01:27 | disposition home or self-care (01) ==
LOC: COL.ER 22:01
DX: S42.92XA Fracture of left shoulder girdle, part unspecified, initial encounter for closed fracture (principal); I10 Essential (primary) hypertension; I48.91 Unspecified atrial fibrillation; Z87.19 Personal history of other diseases of the digestive system; Z79.84 Long term (current) use of oral hypoglycemic drugs; Z79.52 Long term (current) use of systemic steroids; W00.0XXA Fall on same level due to ice and snow, initial encounter
CPT/HCPCS: J1170

== ENCOUNTER 2017-12-01 09:03 | Day surgery (SDC) | payer MEDICARE, MEDICAID ==
[2017-12-01] VITALS (10 sets, daily range): BP systolic 104–128; BP diastolic 64–79; PULSE 66–100; TEMP 97.6–98.1
[~2017-12-01] VITALS: Ht 180.3 cm; Wt 72.6 kg
[2017-12-01] MEDS ORDERED: DAZIDOX10 MG PO (09:56)
[2017-12-01] MEDS ORDERED: MULTIPLE VITAMI1 TA5 PO (09:56)
[2017-12-01 10:13] LABS: HEMATOCRIT 32.9 % (42.0-52.0)
[2017-12-02 00:01] VITALS: BP 114/61; PULSE 86; TEMP 98
[2017-12-02 06:20] VITALS: BP 109/64; PULSE 96; TEMP 98.6
== END 2017-12-02 08:45 | disposition home or self-care (01) ==
LOC: SDCO 09:03 → SURG 14:10 → SDCO 12-02 08:45
PROVIDERS: Nurse Anesthetist, Certified Registered
DX: T86.831 Bone graft failure (principal); D64.9 Anemia, unspecified; J44.9 Chronic obstructive pulmonary disease, unspecified; F32.9 Major depressive disorder, single episode, unspecified; K21.9 Gastro-esophageal reflux disease without esophagitis; G43.909 Migraine, unspecified, not intractable, without status migrainosus; G44.89 Other headache syndrome; I25.10 Atherosclerotic heart disease of native coronary artery without angina pectoris; I25.2 Old myocardial infarction; F41.9 Anxiety disorder, unspecified; G47.33 Obstructive sleep apnea (adult) (pediatric); M06.9 Rheumatoid arthritis, unspecified; G89.18 Other acute postprocedural pain; F17.210 Nicotine dependence, cigarettes, uncomplicated; Z79.82 Long term (current) use of aspirin; Z88.6 Allergy status to analgesic agent; Z88.8 Allergy status to other drugs, medicaments and biological substances; Z85.820 Personal history of malignant melanoma of skin; Z82.49 Family history of ischemic heart disease and other diseases of the circulatory system; Z82.61 Family history of arthritis
CPT/HCPCS: OP; C1713; J0330; J0690; J1100; J1720; J2250; J2270; J2405; J2704; J2795; J3010; J7042; J7120; J7512

== ENCOUNTER → 2018-02-05 | Outpatient (CLI) | payer MEDICARE, MEDICAID ==
[~2018-02-05] MED LIST changes: +MULTIPLE VITAMI1 TA5 PO
== END ==
LOC: COL.RAD 13:30
DX: M25.512 Pain in left shoulder (principal); Z98.890 Other specified postprocedural states

== ENCOUNTER 2018-03-05 11:23 | Inpatient (IN) | payer MEDICARE, MEDICAID ==
[~2018-03-05] VITALS: Ht 180.3 cm; Wt 70.4 kg
[2018-03-05 12:39] LABS: BASO % 0.2 % (0.0-2.0); EOS # 1.4 (0.0-0.7); EOS % 10.3 % (0-4.0); GRAN % 64.5 % (42.2-75.2); HEMATOCRIT 33.1 % (42.0-52.0); HEMOGLOBIN 9.5 g/dl (13.5-18.0); LYMPH # 2.8 (1.2-3.4); LYMPH % 19.8 % (20.0-51.0); MEAN CELL VOLUME 75 fl (80.0-100.0); MEAN CORPUSCULAR HEMOGLOBIN 21 pg (27.0-31.0); MEAN CORPUSCULAR HGB CONC 29 g/dl (33.0-37.0); MEAN PLATELET VOLUME 8.5 fl (7.4-10.4); MONO # 0.6 (0.1-0.6); MONO % 4.6 % (1.7-9.3); PLATELET COUNT 299 K/mm3 (130-400); RED BLOOD COUNT 4.43 M/mm3 (4.20-5.60); REDCELL DISTRIBUTION WIDTH-CV 20.9 % (11.5-14.5)
[2018-03-05 12:50] LABS: ALBUMIN 3.3 gm/dL (3.5-5.0); BILIRUBIN,TOTAL 0.6 mg/dL (0.0-1.0); C-REACTIVE PROTEIN 1.4 mg/dL (0.0-0.9); CALCIUM 9.1 mg/dL (8.4-10.2); CREATININE, serum 0.61 mg/dL (0.66-1.25); POTASSIUM 3.5 mmol/L (3.4-5.0); TOTAL PROTEIN 7.1 gm/dL (6.4-8.2)
[2018-03-05 13:08] LABS: ERYTHROCYTE SEDIMENTATION RATE 22 mm/hr (0-15)
[2018-03-05 16:58] LABS: PROTHROMBIN TIME 11.2 SECONDS (9.7-12.8)
[2018-03-05 17:01] LABS: PARTIAL THROMBOPLASTIN TIME 33.5 SECONDS (26.0-37.0)
[2018-03-05 17:50] VITALS: BP 108/79; PULSE 101; TEMP 99.2
[2018-03-06 00:43] VITALS: BP 111/72; PULSE 101; TEMP 98.9
[2018-03-06 03:55] VITALS: BP 112/75; PULSE 98
[2018-03-06 04:04] LABS: BASO % 0.3 % (0.0-2.0); EOS # 0.9 (0.0-0.7); EOS % 8.8 % (0-4.0); LYMPH # 2.3 (1.2-3.4); LYMPH % 21.4 % (20.0-51.0); MEAN CELL VOLUME 74 fl (80.0-100.0); MEAN CORPUSCULAR HGB CONC 29 g/dl (33.0-37.0); MEAN PLATELET VOLUME 8.7 fl (7.4-10.4); MONO # 0.3 (0.1-0.6); MONO % 2.9 % (1.7-9.3); PLATELET COUNT 263 K/mm3 (130-400); REDCELL DISTRIBUTION WIDTH-CV 20.6 % (11.5-14.5)
[2018-03-06 04:13] LABS: HEMATOCRIT 31.1 % (42.0-52.0); MEAN CORPUSCULAR HEMOGLOBIN 21 pg (27.0-31.0)
[2018-03-06 07:38] LABS: ALBUMIN 2.7 gm/dL (3.5-5.0); BILIRUBIN,TOTAL 0.6 mg/dL (0.0-1.0); CALCIUM 8.4 mg/dL (8.4-10.2); CREATININE, serum 0.55 mg/dL (0.66-1.25); POTASSIUM 4.2 mmol/L (3.4-5.0); TOTAL PROTEIN 5.9 gm/dL (6.4-8.2)
[2018-03-06 08:11] VITALS: BP 115/83; PULSE 102; TEMP 98.4
[2018-03-06 11:30] VITALS: BP 121/79; PULSE 104; TEMP 98.4
[2018-03-06 16:27] VITALS: BP 119/79; PULSE 113; TEMP 97.8
[2018-03-06 17:41] LABS: COMPLEMENT-C3 118 mg/dL (79-152)
[2018-03-06 19:26] VITALS: BP 129/80; PULSE 115
[2018-03-06 23:48] LABS: HEPATITIS B SURFACE ANTIGEN Negative (()); HEPATITIS C VIRUS ANTIBODY Negative (())
[2018-03-07 00:07] VITALS: BP 123/71; PULSE 105
[2018-03-07 03:42] VITALS: BP 109/71; PULSE 92; TEMP 98.5
[2018-03-07 04:49] LABS: BASO % 0.1 % (0.0-2.0); EOS # 1.2 (0.0-0.7); EOS % 11.6 % (0-4.0); GRAN # 5.9 (1.4-6.5); GRAN % 57.4 % (42.2-75.2); LYMPH # 2.7 (1.2-3.4); LYMPH % 26.5 % (20.0-51.0); MEAN CELL VOLUME 74 fl (80.0-100.0); MEAN CORPUSCULAR HGB CONC 29 g/dl (33.0-37.0); MEAN PLATELET VOLUME 8.6 fl (7.4-10.4); MONO # 0.4 (0.1-0.6); PLATELET COUNT 246 K/mm3 (130-400); RED BLOOD COUNT 4.29 M/mm3 (4.20-5.60); REDCELL DISTRIBUTION WIDTH-CV 20.5 % (11.5-14.5)
[2018-03-07 04:53] LABS: HEMATOCRIT 31.6 % (42.0-52.0); HEMOGLOBIN 9.2 g/dl (13.5-18.0); MEAN CORPUSCULAR HEMOGLOBIN 21 pg (27.0-31.0)
[2018-03-07 04:58] LABS: BILIRUBIN,TOTAL 0.5 mg/dL (0.0-1.0); CALCIUM 8.4 mg/dL (8.4-10.2); CREATININE, serum 0.54 mg/dL (0.66-1.25); POTASSIUM 4.4 mmol/L (3.4-5.0); TOTAL PROTEIN 6.5 gm/dL (6.4-8.2)
[2018-03-07 08:08] VITALS: BP 101/81; PULSE 101; TEMP 98.4
[2018-03-07] MEDS ORDERED: ASPIRIN E.C. 8181 MG PO (09:41)
[2018-03-07] MEDS ORDERED: NITRO-BID22 TD (09:41)
[2018-03-07] MEDS ORDERED: MORP4 IV (09:41)
[2018-03-07] MEDS ORDERED: NEURONTIN300 MG/CAP PO (09:42)
[2018-03-07] MEDS ORDERED: IPRATROPIUM BROM3 M1 IH (09:43)
[2018-03-07] MEDS ORDERED: ZOFRAN INJ4 MG/2 ML IV (09:43)
[2018-03-07] MEDS ORDERED: ROCEPHIN VIA1 G/VIAL IV (09:45)
[2018-03-07] MEDS ORDERED: LACTULOSE10 GM/153 PO (09:46)
[2018-03-08 16:32] LABS: CRYOFIBRINOGEN XXX; CRYOGLOBULIN XXX
== END 2018-03-07 11:41 | disposition short-term general hospital (02) | DRG 871 ==
LOC: COL.ER 11:23 → MEDICAL 13:57
PROVIDERS: Emergency Medicine; Hospitalist
DX: A41.9 Sepsis, unspecified organism (principal); J18.9 Pneumonia, unspecified organism; E11.52 Type 2 diabetes mellitus with diabetic peripheral angiopathy with gangrene; I70.268 Atherosclerosis of native arteries of extremities with gangrene, other extremity; F11.20 Opioid dependence, uncomplicated; J44.0 Chronic obstructive pulmonary disease with (acute) lower respiratory infection; G89.4 Chronic pain syndrome; I25.10 Atherosclerotic heart disease of native coronary artery without angina pectoris; F12.10 Cannabis abuse, uncomplicated; K42.9 Umbilical hernia without obstruction or gangrene; F10.21 Alcohol dependence, in remission; K70.31 Alcoholic cirrhosis of liver with ascites; F41.8 Other specified anxiety disorders; K27.9 Peptic ulcer, site unspecified, unspecified as acute or chronic, without hemorrhage or perforation; F17.210 Nicotine dependence, cigarettes, uncomplicated; E11.42 Type 2 diabetes mellitus with diabetic polyneuropathy; M19.019 Primary osteoarthritis, unspecified shoulder; Z95.5 Presence of coronary angioplasty implant and graft
CPT/HCPCS: 99223-AI; 99233-AI; 99239; J0696; J1200; J1644; J2270; J2405; J2543; J3370; J7030; J7050; J7512; Q9967

== ENCOUNTER → 2018-03-30 | Outpatient (CLI) | payer MEDICARE, MEDICAID ==
[~2018-03-30] MED LIST changes: +IPRATROPIUM BROM3 M1 IH; +LACTULOSE10 GM/153 PO; +MORP4 IV; +NITRO-BID22 TD; +ROCEPHIN VIA1 G/VIAL IV; +ZOFRAN INJ4 MG/2 ML IV
== END ==
LOC: COL.LAB 10:04
DX: L02.511 Cutaneous abscess of right hand (principal)

== ENCOUNTER → 2018-05-23 | Outpatient (CLI) | payer MEDICARE, MEDICAID ==
[2018-05-23 16:31] LABS: BASO % 0.3 % (0.0-2.0); EOS # 3.4 (0.0-0.7); EOS % 28.8 % (0-4.0); GRAN # 5.5 (1.4-6.5); LYMPH # 2.3 (1.2-3.4); LYMPH % 19.2 % (20.0-51.0); MEAN CELL VOLUME 76 fl (80.0-100.0); MEAN CORPUSCULAR HGB CONC 30 g/dl (33.0-37.0); MEAN PLATELET VOLUME 9.4 fl (7.4-10.4); MONO # 0.6 (0.1-0.6); MONO % 5.3 % (1.7-9.3); PLATELET COUNT 215 K/mm3 (130-400); RED BLOOD COUNT 4.28 M/mm3 (4.20-5.60); REDCELL DISTRIBUTION WIDTH-CV 21.6 % (11.5-14.5)
[2018-05-23 16:34] LABS: HEMATOCRIT 32.4 % (42.0-52.0); HEMOGLOBIN 9.6 g/dl (13.5-18.0); MEAN CORPUSCULAR HEMOGLOBIN 22 pg (27.0-31.0)
[2018-05-23 16:35] LABS: ALBUMIN 3.3 gm/dL (3.5-5.0); BILIRUBIN,TOTAL 0.6 mg/dL (0.0-1.0); CALCIUM 8.9 mg/dL (8.4-10.2); CREATININE, serum 0.51 mg/dL (0.66-1.25); POTASSIUM 4.1 mmol/L (3.4-5.0); TOTAL PROTEIN 6.7 gm/dL (6.4-8.2)
[2018-05-23 16:37] LABS: INR 0.9 (0.8-3.0); PROTHROMBIN TIME 10.6 SECONDS (9.7-12.8)
== END ==
LOC: COL.LAB 13:04
PROVIDERS: Family Medicine
DX: Z01.812 Encounter for preprocedural laboratory examination (principal); D72.1 Eosinophilia; I25.10 Atherosclerotic heart disease of native coronary artery without angina pectoris

== ENCOUNTER 2018-06-25 22:13 | Emergency (ER) | payer MEDICARE, MEDICAID ==
[~2018-06-25] VITALS: Ht 177.8 cm; Wt 76.4 kg
[2018-06-25 22:18] VITALS: BP 132/81; TEMP 97.9
[2018-06-25 22:45] LABS: BASO % 0.2 % (0.0-2.0); EOS # 2.1 (0.0-0.7); GRAN # 6.4 (1.4-6.5); GRAN % 68.5 % (42.2-75.2); HEMOGLOBIN 10.5 g/dl (13.5-18.0); LYMPH # 0.6 (1.2-3.4); LYMPH % 6.6 % (20.0-51.0); MEAN CELL VOLUME 80 fl (80.0-100.0); MEAN CORPUSCULAR HEMOGLOBIN 23 pg (27.0-31.0); MEAN CORPUSCULAR HGB CONC 29 g/dl (33.0-37.0); MEAN PLATELET VOLUME 9.2 fl (7.4-10.4); MONO # 0.2 (0.1-0.6); MONO % 2.3 % (1.7-9.3); PLATELET COUNT 194 K/mm3 (130-400); RED BLOOD COUNT 4.52 M/mm3 (4.20-5.60); REDCELL DISTRIBUTION WIDTH-CV 22.5 % (11.5-14.5)
[2018-06-25 23:05] LABS: ALBUMIN 3.4 gm/dL (3.5-5.0); CALCIUM 8.9 mg/dL (8.4-10.2); CREATININE, serum 0.52 mg/dL (0.66-1.25); ERYTHROCYTE SEDIMENTATION RATE 14 mm/hr (0-15); POTASSIUM 4.4 mmol/L (3.4-5.0); TOTAL PROTEIN 6.9 gm/dL (6.4-8.2)
[2018-06-25] MEDS ORDERED: DOXYCYCLINE HY100 MG PO (23:28)
[2018-06-25] MEDS ORDERED: CEPHALEXIN500 M1 PO (23:28)
[2018-06-25] MEDS ORDERED: OXY IR5 MG PO (23:35)
[2018-06-25 23:53] VITALS: PULSE 89
== END 2018-06-25 23:53 | disposition home or self-care (01) ==
LOC: COL.ER 22:13
PROVIDERS: Physician Assistant
DX: L03.113 Cellulitis of right upper limb (principal); Z98.890 Other specified postprocedural states; Z87.19 Personal history of other diseases of the digestive system; Z79.82 Long term (current) use of aspirin; Z79.84 Long term (current) use of oral hypoglycemic drugs; Z79.52 Long term (current) use of systemic steroids
CPT/HCPCS: J3010

== ENCOUNTER → 2018-06-28 | Outpatient (CLI) | payer MEDICARE, MEDICAID ==
[~2018-06-28] MED LIST changes: +DOXYCYCLINE HY100 MG PO; +LIPITOR 40MG TA40 MG PO; +OXY IR5 MG PO; +PLAVIX 75MG TAB75 MG PO
== END ==
LOC: COL.LAB 13:41
DX: M71.129 Other infective bursitis, unspecified elbow (principal)

== ENCOUNTER → 2018-07-25 | Outpatient (CLI) | payer MEDICARE ==
[2018-07-25 16:34] LABS: COLLECTION METHOD CLEAN CATCH
[2018-07-25 16:41] LABS: MUCOUS Present /lpf; PH 6 (5-8); SQUAMOUS EPITHELIAL None Seen /hpf; URINE APPEARANCE Clear; URINE BACTERIA None Seen /hpf; URINE BILIRUBIN Negative (NEGATIVE); URINE BLOOD Negative (NEGATIVE); URINE COLOR Straw; URINE GLUCOSE Negative (NEGATIVE); URINE KETONE Negative (NEGATIVE); URINE LEUKOCYTE ESTERASE Negative (NEGATIVE); URINE NITRATE Negative (NEGATIVE); URINE PROTEIN(semi-quant) Negative (NEGATIVE); URINE RBC 0-2 /hpf; URINE UROBILINOGEN Negative (NEGATIVE)
[2018-07-25 16:42] LABS: ALBUMIN 2.8 gm/dL (3.5-5.0); BILIRUBIN,TOTAL 0.4 mg/dL (0.0-1.0); CALCIUM 8.2 mg/dL (8.4-10.2); CREATININE, serum 0.62 mg/dL (0.66-1.25); POTASSIUM 4.1 mmol/L (3.4-5.0); TOTAL PROTEIN 5.7 gm/dL (6.4-8.2)
== END ==
LOC: ZCOL.LAB 16:20
PROVIDERS: Family Medicine
DX: R34 Anuria and oliguria (principal); R30.0 Dysuria

== ENCOUNTER 2018-08-14 21:31 | Emergency (ER) | payer MEDICARE ==
[~2018-08-14] VITALS: Ht 180.3 cm; Wt 72.7 kg
[2018-08-14 21:47] VITALS: BP 122/76; TEMP 98
[2018-08-14] MEDS ORDERED: PREDNISONE20 MG PO (23:15)
[2018-08-15 00:45] VITALS: PULSE 88
== END 2018-08-15 00:47 | disposition home or self-care (01) ==
LOC: COL.ER 21:31
DX: H11.423 Conjunctival edema, bilateral (principal); H10.13 Acute atopic conjunctivitis, bilateral; I25.10 Atherosclerotic heart disease of native coronary artery without angina pectoris; Z79.82 Long term (current) use of aspirin; Z79.84 Long term (current) use of oral hypoglycemic drugs
CPT/HCPCS: J7512

== ENCOUNTER → 2018-09-19 | Outpatient (CLI) | payer MEDICARE ==
[2018-09-19 16:23] LABS: BASO % 0.3 % (0.0-2.0); EOS # 5.1 (0.0-0.7); EOS % 32.4 % (0-4.0); GRAN % 50.3 % (42.2-75.2); HEMATOCRIT 44.2 % (42.0-52.0); HEMOGLOBIN 13.3 g/dl (13.5-18.0); LYMPH # 2.2 (1.2-3.4); MEAN CELL VOLUME 79 fl (80.0-100.0); MEAN CORPUSCULAR HEMOGLOBIN 24 pg (27.0-31.0); MEAN CORPUSCULAR HGB CONC 30 g/dl (33.0-37.0); MEAN PLATELET VOLUME 8.9 fl (7.4-10.4); MONO # 0.4 (0.1-0.6); MONO % 2.5 % (1.7-9.3); PLATELET COUNT 362 K/mm3 (130-400); RED BLOOD COUNT 5.57 M/mm3 (4.20-5.60); REDCELL DISTRIBUTION WIDTH-CV 21.8 % (11.5-14.5)
[2018-09-19 16:41] LABS: ALBUMIN 3.5 gm/dL (3.5-5.0); BILIRUBIN,TOTAL 0.7 mg/dL (0.0-1.0); C-REACTIVE PROTEIN 2.1 mg/dL (0.0-0.9); CALCIUM 9.5 mg/dL (8.4-10.2); CREATININE, serum 0.71 mg/dL (0.66-1.25); POTASSIUM 4.4 mmol/L (3.4-5.0); TOTAL PROTEIN 6.8 gm/dL (6.4-8.2)
[2018-09-19 16:45] LABS: ERYTHROCYTE SEDIMENTATION RATE 10 mm/hr (0-15)
== END ==
LOC: COL.LAB 15:30
PROVIDERS: Family Medicine
DX: M71.129 Other infective bursitis, unspecified elbow (principal)

== ENCOUNTER 2018-09-29 12:38 | Emergency (ER) | payer MEDICARE ==
[~2018-09-29] VITALS: Ht 180.3 cm; Wt 76.8 kg
[2018-09-29 12:42] VITALS: TEMP 98.4
[2018-09-29] MEDS ORDERED: PREDNISONE20 MG PO (14:42)
[2018-09-29 14:53] VITALS: BP 100/68; PULSE 95
== END 2018-09-29 14:55 | disposition home or self-care (01) ==
LOC: COL.ER 12:38
DX: T36.0X5A Adverse effect of penicillins, initial encounter (principal); J44.9 Chronic obstructive pulmonary disease, unspecified; E11.9 Type 2 diabetes mellitus without complications; I10 Essential (primary) hypertension; K21.9 Gastro-esophageal reflux disease without esophagitis; F32.9 Major depressive disorder, single episode, unspecified; F17.210 Nicotine dependence, cigarettes, uncomplicated; Z79.82 Long term (current) use of aspirin; Z79.84 Long term (current) use of oral hypoglycemic drugs; Z85.820 Personal history of malignant melanoma of skin
CPT/HCPCS: J1200; J2930; J7030

== ENCOUNTER 2019-03-07 07:33 | Emergency (ER) | payer MEDICARE ==
[~2019-03-07] VITALS: Ht 180.3 cm; Wt 72.7 kg
[2019-03-07 07:38] VITALS: TEMP 97.1
[2019-03-07 08:29] LABS: BASO # 0.1 (0.0-0.2); BASO % 0.4 % (0.0-2.0); EOS # 4.3 (0.0-0.7); EOS % 30.3 % (0-4.0); GRAN # 6.9 (1.4-6.5); GRAN % 48.7 % (42.2-75.2); HEMOGLOBIN 10.4 g/dl (13.5-18.0); LYMPH % 13.8 % (20.0-51.0); MEAN CELL VOLUME 81 fl (80.0-100.0); MEAN CORPUSCULAR HEMOGLOBIN 25 pg (27.0-31.0); MEAN CORPUSCULAR HGB CONC 30 g/dl (33.0-37.0); MEAN PLATELET VOLUME 9.5 fl (7.4-10.4); MONO # 0.9 (0.1-0.6); MONO % 6.1 % (1.7-9.3); PLATELET COUNT 227 K/mm3 (130-400); RED BLOOD COUNT 4.25 M/mm3 (4.20-5.60); REDCELL DISTRIBUTION WIDTH-CV 18.3 % (11.5-14.5)
[2019-03-07 08:30] LABS: HEMATOCRIT 34.5 % (42.0-52.0)
[2019-03-07 08:45] LABS: ALBUMIN 3.2 gm/dL (3.5-5.0); BILIRUBIN,TOTAL 0.4 mg/dL (0.0-1.0); C-REACTIVE PROTEIN 1.7 mg/dL (0.0-0.9); CALCIUM 8.9 mg/dL (8.4-10.2); CREATININE, serum 0.61 (0.66-1.25); POTASSIUM 3.9 mmol/L (3.4-5.0); TOTAL PROTEIN 6.4 gm/dL (6.4-8.2)
[2019-03-07] MEDS ORDERED: XANAX 1MG1 MG PO (09:31)
[2019-03-07 09:53] VITALS: BP 134/93; PULSE 109
[2019-03-07] MEDS ORDERED: LASIX 40MG TABL40 MG PO ×2 (10:19→10:20)
[2019-03-07] MEDS ORDERED: ASPIRIN E.C. 8181 MG (10:21)
[2019-03-07] MEDS ORDERED: PREDNISONE20 MG (10:24)
[2019-03-07] MEDS ORDERED: NEURONTIN600 MG/TAB PO (10:25)
== END 2019-03-07 10:04 | disposition home or self-care (01) ==
LOC: COL.ER 07:33
PROVIDERS: Emergency Medicine
DX: F41.9 Anxiety disorder, unspecified (principal); E11.9 Type 2 diabetes mellitus without complications; F32.9 Major depressive disorder, single episode, unspecified; M46.40 Discitis, unspecified, site unspecified; J44.9 Chronic obstructive pulmonary disease, unspecified; I48.91 Unspecified atrial fibrillation; F17.210 Nicotine dependence, cigarettes, uncomplicated; F12.90 Cannabis use, unspecified, uncomplicated; Z90.49 Acquired absence of other specified parts of digestive tract; Z79.82 Long term (current) use of aspirin; Z79.02 Long term (current) use of antithrombotics/antiplatelets; Z79.84 Long term (current) use of oral hypoglycemic drugs
CPT/HCPCS: J2060; J2405; J7030

== ENCOUNTER 2019-04-06 15:06 | Outpatient (RCR) | payer MEDICARE ==
[2019-03-07 12:00] VITALS: BP 119/70; PULSE 106; TEMP 98.7
--- NOTE | 2019-03-07 16:07 | NUR ---
SW was contacted by Express nurse about patient being interested in going to [facility] for counseling. DAVID met with patient about this. Patient repored that he is a recovering alcoholic (3 yrs sober). He has used meth and smoked marijuana in the last 60 days. Patient was arrested for meth use a month ago and is now working to get clean. Patient did go to a 5 day rehab facility for meth use. Patient reports he is slowly getting away from drugs but continues to have temptation. Patient reports he has some depression, anxiety, and stress because of this. Patient does have family support (daughter and cousin) in the area. Patient inquired if DAVID could contact [facility] to help him get established with those services. DAVID contacted [facility] and they spoke to patient. Patient will follow up with [facility] after he leaves [facility] to make an appointment with a counselor.
[2019-03-08 08:13] VITALS: BP 105/76; PULSE 92; TEMP 97.8
[2019-03-09 08:55] VITALS: BP 135/86; PULSE 118; TEMP 98.8
[2019-03-10 08:42] VITALS: BP 107/67; PULSE 97; TEMP 97.9
[2019-03-11 09:36] LABS: MEAN CELL VOLUME 81 fl (80.0-100.0); MEAN CORPUSCULAR HGB CONC 30 g/dl (33.0-37.0); MEAN PLATELET VOLUME 9.6 fl (7.4-10.4); PLATELET COUNT 212 K/mm3 (130-400); RED BLOOD COUNT 3.79 M/mm3 (4.20-5.60); REDCELL DISTRIBUTION WIDTH-CV 18.3 % (11.5-14.5)
[2019-03-11 09:40] VITALS: BP 118/67; PULSE 96; TEMP 98.1
[2019-03-11 09:42] LABS: HEMATOCRIT 30.7 % (42.0-52.0); HEMOGLOBIN 9.3 g/dl (13.5-18.0); MEAN CORPUSCULAR HEMOGLOBIN 25 pg (27.0-31.0)
[2019-03-11 09:45] LABS: CALCIUM 8.5 mg/dL (8.4-10.2); CREATININE, serum 0.5 (0.66-1.25); POTASSIUM 4.2 mmol/L (3.4-5.0)
[2019-03-11 09:53] LABS: ERYTHROCYTE SEDIMENTATION RATE 16 mm/hr (0-15)
[2019-03-12 08:14] VITALS: BP 116/85; PULSE 112; TEMP 97.8
[2019-03-13 08:21] VITALS: BP 100/54; PULSE 99; TEMP 97.8
[2019-03-14 09:20] VITALS: BP 110/52; PULSE 101; TEMP 98
[2019-03-15 08:32] VITALS: BP 122/81; PULSE 96; TEMP 97.9
[2019-03-16 08:33] VITALS: BP 123/77; PULSE 93; TEMP 98.3
[2019-03-17 08:15] VITALS: BP 105/76; PULSE 78; TEMP 97.5
[2019-03-18 08:16] VITALS: BP 105/73; PULSE 80; TEMP 97.7
[2019-03-19 08:20] VITALS: BP 113/76; PULSE 104; TEMP 98.1
[2019-03-19 08:35] LABS: HEMOGLOBIN 10.4 g/dl (13.5-18.0); MEAN CELL VOLUME 83 fl (80.0-100.0); MEAN CORPUSCULAR HEMOGLOBIN 25 pg (27.0-31.0); MEAN CORPUSCULAR HGB CONC 30 g/dl (33.0-37.0); MEAN PLATELET VOLUME 8.9 fl (7.4-10.4); PLATELET COUNT 269 K/mm3 (130-400); RED BLOOD COUNT 4.18 M/mm3 (4.20-5.60); REDCELL DISTRIBUTION WIDTH-CV 18.6 % (11.5-14.5)
[2019-03-19 08:37] LABS: HEMATOCRIT 34.5 % (42.0-52.0)
[2019-03-19 08:50] LABS: CALCIUM 8.5 mg/dL (8.4-10.2); CREATININE, serum 0.5 (0.66-1.25); POTASSIUM 3.8 mmol/L (3.4-5.0)
[2019-03-19 08:53] LABS: ERYTHROCYTE SEDIMENTATION RATE 13 mm/hr (0-15)
[2019-03-20 08:04] VITALS: BP 112/73; PULSE 86; TEMP 97.9
[2019-03-21 08:11] VITALS: BP 102/81; PULSE 95; TEMP 97.5
--- NOTE | 2019-03-21 08:20 | NUR ---
PICC intact right upper arm with sterile dressing change done with insertion site cleansed with chloraprep x 1, chlorhexidine impregnated disk, skin prep, stat lock, and tegaderm applied. no signs or symptoms of IV complications noted. no concerns voiced. extension sets made tamper evident. patient to continue with IV antibiotics in EU.
[2019-03-22 07:51] VITALS: BP 123/79; PULSE 97; TEMP 98
[2019-03-23 08:06] VITALS: BP 113/77; PULSE 95; TEMP 98
[2019-03-24 08:05] VITALS: BP 109/70; PULSE 93; TEMP 98
[2019-03-25 07:56] VITALS: BP 97/68; PULSE 84; TEMP 98.1
[2019-03-25 08:05] LABS: HEMATOCRIT 34.5 % (42.0-52.0); HEMOGLOBIN 10.2 g/dl (13.5-18.0); MEAN CELL VOLUME 81 fl (80.0-100.0); MEAN CORPUSCULAR HEMOGLOBIN 24 pg (27.0-31.0); MEAN CORPUSCULAR HGB CONC 30 g/dl (33.0-37.0); MEAN PLATELET VOLUME 9.3 fl (7.4-10.4); PLATELET COUNT 286 K/mm3 (130-400); RED BLOOD COUNT 4.26 M/mm3 (4.20-5.60); REDCELL DISTRIBUTION WIDTH-CV 18.2 % (11.5-14.5)
--- NOTE | 2019-03-25 08:15 | NUR ---
PICC intact right upper arm. Lower edge of dressing not intact. Patient reports his pain dressing got wet during a shower this a.m. With sterile technique right upper arm PICC dressing change done with insertion site cleansed with ChloraPrep 1, chlorhexidine impregnated disc applied, skin prep, StatLock, and Tegaderm applied. No signs or symptoms of IV complications noted. No other concerns voiced. Arm wrapped with Tristen to protect catheter.
[2019-03-25 08:26] LABS: CALCIUM 9.1 mg/dL (8.4-10.2); CREATININE, serum 0.6 (0.66-1.25); POTASSIUM 3.5 mmol/L (3.4-5.0)
[2019-03-25 10:09] LABS: ERYTHROCYTE SEDIMENTATION RATE 10 mm/hr (0-15)
[2019-03-26 08:09] VITALS: BP 108/66; PULSE 95; TEMP 98.4
[2019-03-27 08:37] VITALS: BP 125/55; PULSE 88; TEMP 98.1
--- NOTE | 2019-03-27 14:00 | NUR ---
Malka Moody RN from Dr Marley's office called and stated pt had missed his f/u with Dr. Spangler and Dr. Spangler is discontinuing care until pt comes in to see him. Reviewed with Malka that pt has been compliant with all doses of abx and pt is being seen by Dr. Londono who all orders are under. Plan to have pt contact Dr. Spangler office tomorrow to reschedule f/u.
--- NOTE | 2019-03-28 08:10 | NUR ---
PICC intact right upper arm with sterile dressing change done with insertion site cleansed with chloraprep x 1, chlorhexidine impregnated disk applied, skin prep, stat lock, and tegaderm applied. no signs or symptoms of IV complications noted. no concerns voiced. tamper evident dressing applied on top. to continue with cares in EU. voiced understanding of instructions.
[2019-03-28 08:18] VITALS: BP 118/76; PULSE 93; TEMP 97.8
[2019-03-29 10:46] VITALS: BP 140/91; PULSE 100; TEMP 98.4
[2019-03-30 08:05] VITALS: BP 122/78; PULSE 103; TEMP 97.9
[2019-03-31 09:01] VITALS: BP 114/72; PULSE 95; TEMP 97.8
[2019-04-01 09:26] VITALS: BP 103/77; PULSE 92; TEMP 98.4
[2019-04-01 09:31] LABS: MEAN CELL VOLUME 83 fl (80.0-100.0); MEAN CORPUSCULAR HGB CONC 29 g/dl (33.0-37.0); MEAN PLATELET VOLUME 9.7 fl (7.4-10.4); PLATELET COUNT 182 K/mm3 (130-400); RED BLOOD COUNT 3.96 M/mm3 (4.20-5.60); REDCELL DISTRIBUTION WIDTH-CV 18.7 % (11.5-14.5)
[2019-04-01 09:40] LABS: CALCIUM 8.6 mg/dL (8.4-10.2); CREATININE, serum 0.54 (0.66-1.25); POTASSIUM 3.4 mmol/L (3.4-5.0)
--- NOTE | 2019-04-01 09:50 | NUR ---
PICC intact right upper arm. With sterile technique right upper arm PICC dressing change done with insertion site cleansed with ChloraPrep 1, chlorhexidine impregnated disc applied, skin prep, StatLock, and Tegaderm applied. No signs or symptoms of IV complications noted. No concerns voiced.
[2019-04-01 10:01] LABS: ERYTHROCYTE SEDIMENTATION RATE 1 mm/hr (0-15); HEMATOCRIT 32.8 % (42.0-52.0); HEMOGLOBIN 9.5 g/dl (13.5-18.0); MEAN CORPUSCULAR HEMOGLOBIN 24 pg (27.0-31.0)
[2019-04-02 10:10] VITALS: BP 119/83; PULSE 109; TEMP 98.6
--- NOTE | 2019-04-03 08:20 | NUR ---
patient reports PICC dressing became well when he took a shower. With sterile technique right upper arm PICC dressing change done with insertion site cleansed with ChloraPrep 1, chlorhexidine impregnated disc applied, skin prep, StatLock, and Tegaderm applied. The chlorhexidine disc was damp. No other signs or symptoms of IV complications noted. No concerns voiced. Arm wrapped with Tristen to protect catheter.
[2019-04-03 09:30] VITALS: BP 108/62; PULSE 88; TEMP 98.5
[2019-04-03 16:46] LABS: CK total - for Isoenzymes 83 U/L (39 - 308)
[2019-04-04 08:23] VITALS: BP 106/70; PULSE 89; TEMP 97.9
[2019-04-05 08:08] VITALS: BP 118/86; PULSE 97; TEMP 98.1
[~2019-04-06] VITALS: Ht 180.3 cm; Wt 74.0 kg
--- NOTE | 2019-04-06 09:06 | NUR ---
Pt did not show for 8am apt.This nurse called pt and left voice mail.pt called moo,reported he had a flat tire and would come in as soon as he could.Reported to pt to go to ER for infusion upon arrival,report given to ER charge nurse.
[~2019-04-06 15:06] MED LIST changes: +ASPIRIN E.C. 8181 MG; +FLAGYL500 MG PO; +NEURONTIN600 MG/TAB PO; +PREDNISONE20 MG
[2019-04-07 09:05] VITALS: BP 110/70; PULSE 103; TEMP 97.5
--- NOTE | 2019-04-07 09:07 | NUR ---
Per pt report he did not get his abx yesterday.Pt reports he came ot ER but "too many people ahead of me." reports he left.Spoke with ER Charge.Per padilla report pt was not seen yesterday.Encouraged pt to come for all scheduled appointments.Explained the importance of not missing any doses.Pt verbalizes understanding.per pt he did not go to Apt with Dr Spangler last week.per pt he is waiting on a callack from Dr Burgos to get in with his office for ID.
[2019-04-08 08:00] VITALS: BP 104/69; PULSE 86; TEMP 98
--- NOTE | 2019-04-08 08:30 | NUR ---
PICC intact right upper arm. With sterile technique right upper arm PICC dressing change done with insertion site cleansed with ChloraPrep 1, chlorhexidine impregnated disc applied, skin prep, StatLock, and Tegaderm applied. Dressing change due to lower edge of dressing not intact. Her symptoms of IV complications noted. No concerns voiced. To continue with cares to the express unit.
[2019-04-08 08:36] LABS: MEAN CELL VOLUME 83 fl (80.0-100.0); MEAN CORPUSCULAR HGB CONC 29 g/dl (33.0-37.0); MEAN PLATELET VOLUME 9.8 fl (7.4-10.4); PLATELET COUNT 160 K/mm3 (130-400); RED BLOOD COUNT 3.41 M/mm3 (4.20-5.60); REDCELL DISTRIBUTION WIDTH-CV 18.3 % (11.5-14.5)
[2019-04-08 08:49] LABS: CALCIUM 8.6 mg/dL (8.4-10.2); CREATININE, serum 0.49 (0.66-1.25); POTASSIUM 3.7 mmol/L (3.4-5.0)
[2019-04-08 09:11] LABS: HEMATOCRIT 28.2 % (42.0-52.0); HEMOGLOBIN 8.1 g/dl (13.5-18.0); MEAN CORPUSCULAR HEMOGLOBIN 24 pg (27.0-31.0)
[2019-04-09 09:19] VITALS: BP 104/68; PULSE 87; TEMP 97.3
--- NOTE | 2019-04-09 14:00 | NUR ---
Reported to Amelie,Nurse at office pt did not show for monday abx apt.requested clarification do they want us to make up missed dose at end of doses.Will await callback.
[2019-04-09 15:43] LABS: CK total - for Isoenzymes 33 U/L (39 - 308)
[2019-04-10 09:11] VITALS: BP 116/71; PULSE 103; TEMP 98.5
[2019-04-11 10:51] VITALS: BP 104/74; PULSE 99; TEMP 98
--- NOTE | 2019-04-11 11:00 | NUR ---
here for cares. With sterile technique right upper arm PICC dressing change done with insertion site cleansed with ChloraPrep 1, chlorhexidine impregnated disc applied, skin prep, StatLock, and Tegaderm applied. No signs or symptoms of IV complications noted. No concerns voiced. Continued change with cares and express unit.
[2019-04-12 08:10] VITALS: BP 117/71; PULSE 100; TEMP 98.3
[2019-04-13 08:55] VITALS: BP 99/70; PULSE 81; TEMP 97.8
[2019-04-15 09:49] VITALS: BP 126/81; PULSE 92; TEMP 97.8
[2019-04-15 10:00] LABS: MEAN CELL VOLUME 81 fl (80.0-100.0); MEAN CORPUSCULAR HGB CONC 29 g/dl (33.0-37.0); PLATELET COUNT 221 K/mm3 (130-400); RED BLOOD COUNT 4.09 M/mm3 (4.20-5.60); REDCELL DISTRIBUTION WIDTH-CV 18.3 % (11.5-14.5)
[2019-04-15 10:01] LABS: HEMATOCRIT 33.3 % (42.0-52.0); HEMOGLOBIN 9.6 g/dl (13.5-18.0); MEAN CORPUSCULAR HEMOGLOBIN 23 pg (27.0-31.0)
--- NOTE | 2019-04-15 10:15 | NUR ---
PICC intact right upper arm. With sterile technique right upper arm PICC dressing change done with insertion site cleansed with ChloraPrep 1, chlorhexidine impregnated disc applied, skin prep, StatLock, and Tegaderm applied. X-rays Tegaderm applied on top of dressing. Tamper evident dressing applied. Patient is return in a.m. for IV antibiotics. Patient voiced understanding of instructions.
[2019-04-15 10:16] LABS: CALCIUM 8.5 mg/dL (8.4-10.2); CREATININE, serum 0.49 (0.66-1.25); POTASSIUM 3.8 mmol/L (3.4-5.0)
[2019-04-16 09:12] VITALS: BP 115/71; PULSE 89; TEMP 98
[2019-04-17 10:08] VITALS: BP 100/66; PULSE 73; TEMP 97.7
== END 2019-04-17 14:42 | disposition home or self-care (01) ==
LOC: EUO 04-07 08:00
PROVIDERS: Family Medicine
DX: Z45.2 Encounter for adjustment and management of vascular access device (principal); M46.46 Discitis, unspecified, lumbar region
CPT/HCPCS: C1751; J0878

== ENCOUNTER → 2019-05-03 | Outpatient (CLI) | payer MEDICARE ==
[~2019-05-03] MED LIST changes: +AMOXICILLIN/CLA1 TA1 PO
== END ==
LOC: COL.RAD 04-24 10:30
DX: Z01.818 Encounter for other preprocedural examination (principal); A49.01 Methicillin susceptible Staphylococcus aureus infection, unspecified site; M48.061 Spinal stenosis, lumbar region without neurogenic claudication; M41.86 Other forms of scoliosis, lumbar region; M51.36 Other intervertebral disc degeneration, lumbar region
CPT/HCPCS: A9585

== ENCOUNTER 2019-05-06 00:18 | Emergency (ER) | payer MEDICARE ==
[~2019-05-06] VITALS: Ht 180.3 cm; Wt 71.8 kg
[~2019-05-06 00:18] MED LIST changes: -AMOXICILLIN/CLA1 TA1 PO
[2019-05-06 00:23] VITALS: BP 107/72; TEMP 99.5
[2019-05-06 01:03] LABS: MEAN CELL VOLUME 80 fl (80.0-100.0); MEAN CORPUSCULAR HGB CONC 29 g/dl (33.0-37.0); MEAN PLATELET VOLUME 9.3 fl (7.4-10.4); PLATELET COUNT 165 K/mm3 (130-400); RED BLOOD COUNT 3.71 M/mm3 (4.20-5.60); REDCELL DISTRIBUTION WIDTH-CV 18.6 % (11.5-14.5)
[2019-05-06 01:04] LABS: HEMATOCRIT 29.7 % (42.0-52.0); HEMOGLOBIN 8.7 g/dl (13.5-18.0); MEAN CORPUSCULAR HEMOGLOBIN 23 pg (27.0-31.0)
[2019-05-06 01:25] LABS: BAND 5 % (0-10); EOSINOPHIL 24 % (0-4); LYMPHOCYTE 15 % (20.0-51.0); NEUTROPHILS 55 % (42.0-75.2)
[2019-05-06 01:26] LABS: ANISOCYTOSIS 2+; HYPOCHROMIA 2+; PLATELET ESTIMATE NORMAL (NORMAL)
[2019-05-06 01:27] LABS: OVALOCYTES 1+
[2019-05-06] MEDS ORDERED: NORCO 325 MG-51 TAB PO (01:35)
[2019-05-06 02:05] VITALS: PULSE 96
[2019-05-06] MEDS ORDERED: AMOXICILLIN/CLA1 TA1 PO (06:33)
== END 2019-05-06 02:00 | disposition home or self-care (01) ==
LOC: COL.ER 00:18
PROVIDERS: Emergency Medicine
DX: S92.421A Displaced fracture of distal phalanx of right great toe, initial encounter for closed fracture (principal); E11.9 Type 2 diabetes mellitus without complications; Z79.84 Long term (current) use of oral hypoglycemic drugs; X58.XXXA Exposure to other specified factors, initial encounter

== ENCOUNTER 2019-06-18 08:54 | Day surgery (SDC) | payer MEDICARE ==
[~2019-06-18] VITALS: Ht 177.8 cm; Wt 70.7 kg
[~2019-06-18 08:54] MED LIST changes: +AMOXICILLIN/CLA1 TA1 PO; +CLEOCIN HCL300 MG PO; -PREDNISONE20 MG
[2019-06-18] MEDS ORDERED: XANAX 1MG1 MG PO (09:31)
[2019-06-18] MEDS ORDERED: CLEOCIN HCL300 MG PO (09:32)
[2019-06-18] MEDS ORDERED: PLAVIX 75MG TAB75 MG PO (09:36)
[2019-06-18 09:50] VITALS: BP 114/84; PULSE 92; TEMP 97.6
[2019-06-18] MEDS ORDERED: NORCO 325 MG-51 TAB PO (14:57)
[2019-06-18 15:04] VITALS: BP 109/56; PULSE 80; TEMP 98.1
--- NOTE | 2019-06-18 15:04 | NUR ---
The patient arrived back to [facility] from the operating room at this time. The patient appears alert and oriented and denies any pain or nausea at this time. Post operative vital signs were started at this time. The patient's dressing to his right foot appears clean, dry, and intact. The patient requests to try some orange juice and a muffin at this time and would like the nurse to order a hot tray for him. Call light is within reach. Will continue to monitor the patient.
[2019-06-18 15:19] VITALS: BP 113/74; PULSE 66
--- NOTE | 2019-06-18 15:19 | NUR ---
The patient appears to tolerating the food and drink well. His hot tray has been ordered from room service. He continues to deny any pain at this time. Vital signs appear stable. Will continue to monitor the patient.
[2019-06-18 15:34] VITALS: BP 121/88; PULSE 60
--- NOTE | 2019-06-18 15:34 | NUR ---
The patient was given his hot tray at this time. He appears to be resting comfortably on the cart at this time. Call light is within reach. Will continue to monitor the patient.
[2019-06-18 15:49] VITALS: BP 123/83; PULSE 77
--- NOTE | 2019-06-18 15:49 | NUR ---
The patient appears to be tolerating the food well. The nurse instructed the patient to press his call light when he is done eating to review his discharge instructions.
--- NOTE | 2019-06-18 16:00 | NUR ---
Discharge instructions were reviewed with the patient at this time. He verbalized understanding and has no questions for the nurse at this time. The patient's IV to his right forearm was removed and a pressure dressing was applied to the site. The nurse instructed the patient to get dressed and notify the staff when he is ready to be escorted out.
--- NOTE | 2019-06-18 16:10 | NUR ---
The patient was escorted out via wheelchair by MARCE Chow to a private vehicle at this time. The patient's belongings and discharge paperwork were sent with him. The patient's room mate Deja is present to drive him home.
== END 2019-06-18 16:10 | disposition home or self-care (01) ==
LOC: SDCO 08:54
DX: S91.104A Unspecified open wound of right lesser toe(s) without damage to nail, initial encounter (principal); S92.421D Displaced fracture of distal phalanx of right great toe, subsequent encounter for fracture with routine healing; M25.674 Stiffness of right foot, not elsewhere classified; J44.9 Chronic obstructive pulmonary disease, unspecified; E11.9 Type 2 diabetes mellitus without complications; K21.9 Gastro-esophageal reflux disease without esophagitis; I83.90 Asymptomatic varicose veins of unspecified lower extremity; I25.2 Old myocardial infarction; G43.909 Migraine, unspecified, not intractable, without status migrainosus; M06.9 Rheumatoid arthritis, unspecified; G47.33 Obstructive sleep apnea (adult) (pediatric); I25.10 Atherosclerotic heart disease of native coronary artery without angina pectoris; K74.60 Unspecified cirrhosis of liver; K75.9 Inflammatory liver disease, unspecified; F41.9 Anxiety disorder, unspecified; I85.00 Esophageal varices without bleeding; F17.210 Nicotine dependence, cigarettes, uncomplicated; F32.9 Major depressive disorder, single episode, unspecified; F10.20 Alcohol dependence, uncomplicated; Z85.828 Personal history of other malignant neoplasm of skin; Z79.82 Long term (current) use of aspirin; Z79.84 Long term (current) use of oral hypoglycemic drugs; Z79.02 Long term (current) use of antithrombotics/antiplatelets; Z79.891 Long term (current) use of opiate analgesic; Z91.030 Bee allergy status
CPT/HCPCS: J2250; J2270; J2704; J3010; J7120

== ENCOUNTER → 2019-06-27 | Outpatient (CLI) | payer MEDICARE | LOC: COL.LAB 11:23 | DX: A49.01 Methicillin susceptible Staphylococcus aureus infection, unspecified site (principal) ==

== ENCOUNTER → 2019-06-27 | Outpatient (CLI) | payer MEDICARE | LOC: ZCOL.LAB 15:54 | DX: A49.01 Methicillin susceptible Staphylococcus aureus infection, unspecified site (principal) ==

== ENCOUNTER → 2019-07-26 | Outpatient (CLI) | payer MEDICARE, MEDICAID | LOC: COL.RAD 11:19 | DX: M85.812 Other specified disorders of bone density and structure, left shoulder (principal); Z98.890 Other specified postprocedural states; Z87.81 Personal history of (healed) traumatic fracture ==

== ENCOUNTER 2019-08-20 05:38 | Day surgery (SDC) | payer MEDICARE, MEDICAID ==
[~2019-08-20] VITALS: Ht 180.3 cm; Wt 75.9 kg
[2019-08-20] MEDS ORDERED: ULTRAM 50MG TAB50 MG PO (06:07)
[2019-08-20] MEDS ORDERED: ZOFRAN 4MG T4 MG/TAB PO (06:07)
[2019-08-20 06:08] VITALS: BP 102/68; PULSE 87; TEMP 97.7
[2019-08-20] MEDS ORDERED: IMDUR 30MG30 MG/TAB PO (06:08)
[2019-08-20 08:32] LABS: SYNOVIAL FL. MONONUCLEAR 59.6 % (0-75); SYNOVIAL FLUID RBC 50000 /mm3 (0-0); SYNOVIAL FLUID WBC 332 /mm3 (200-600)
[2019-08-20 08:34] LABS: SYNOVIAL FLUID APPEARANCE HAZY; SYNOVIAL FLUID COLOR PINK
[2019-08-20 09:30] VITALS: BP 112/66; PULSE 90; TEMP 98.7
--- NOTE | 2019-08-20 09:30 | NUR ---
Patient arrives to [facility] for recovery. He is sitting up in bed, chatting, alert and oriented. Monitoring applied - VSS and WNL on 1 L nasal cannula. He denies numbness or tingling. His operative site is covered with a clean, dry, intact dressing. His LUE is in a sling. He moves his fingers freely. His fingers are warm, pink, and have full sensation. Complains of mild pain 4/10, which he just received IV Pain medication for in PACU. Will continue to monitor pain. He requests to order breakfast - attempted to order patient a hot tray at 0932, dietary informs that they do not serve hot trays after 0930. Notified patient of limited ordering at this time - he states "Now I'm going to get really mad. That makes me want to cuss." Gave patient options for other dietary orders, which he chooses a meal and seems content with order. Expresses gratitude to staff for assistance with ordering. Will continue to monitor.
[2019-08-20 09:45] VITALS: BP 109/61; PULSE 88
--- NOTE | 2019-08-20 09:45 | NUR ---
Patient is resting comfortably in room. He has received his food tray and is eating lunch. His pain remains unchanged. He denies any other complaints.
[2019-08-20 10:00] VITALS: BP 114/76; PULSE 94
--- NOTE | 2019-08-20 10:00 | NUR ---
VSS and WNL on room air. Eating lunch. Given a second pepsi. Resting comfortably. Friend is at the bedside.
[2019-08-20 10:15] VITALS: BP 128/86; PULSE 95
--- NOTE | 2019-08-20 10:15 | NUR ---
Patient resting comfortably in room. He has finished his meal. He states "I'm ready to go". Escorted to restroom, voids large amt clear/yellow urine, returns to room. VSS and WNL on room air. Patient requests a pain pill prior to discharge as he "can't get his pain meds for a couple of hours at least". Will return with pain medication and discharge paperwork.
--- NOTE | 2019-08-20 10:47 | NUR ---
Discharge instructions discussed, denies any questions, and verbalizes understanding. PIV removed with catheter intact and hemostasis achieved. Assisted to change into clothing and sling in place. Escorted to exit via wheelchair. Discharged to home with ride in private vehicle at 1047.
== END 2019-08-20 10:47 | disposition home or self-care (01) ==
LOC: SDCO 05:38
PROVIDERS: Orthopaedic Surgery
DX: M25.312 Other instability, left shoulder (principal); I10 Essential (primary) hypertension; I25.2 Old myocardial infarction; I25.10 Atherosclerotic heart disease of native coronary artery without angina pectoris; I48.91 Unspecified atrial fibrillation; J44.9 Chronic obstructive pulmonary disease, unspecified; F17.210 Nicotine dependence, cigarettes, uncomplicated; G89.29 Other chronic pain; E11.9 Type 2 diabetes mellitus without complications; Z79.02 Long term (current) use of antithrombotics/antiplatelets; Z79.52 Long term (current) use of systemic steroids; Z79.84 Long term (current) use of oral hypoglycemic drugs; Z88.8 Allergy status to other drugs, medicaments and biological substances
CPT/HCPCS: A4619; J0171; J0690; J1100; J1170; J1885; J2405; J2704; J3010; J7030

== ENCOUNTER 2019-08-31 14:33 | Emergency (ER) | payer MEDICARE, MEDICAID ==
[~2019-08-31] VITALS: Ht 180.3 cm; Wt 72.7 kg
[~2019-08-31 14:33] MED LIST changes: +IMDUR 30MG30 MG/TAB PO
[2019-08-31 14:44] VITALS: BP 119/62; TEMP 98.5
[2019-08-31 16:25] VITALS: PULSE 92
== END 2019-08-31 16:25 | disposition home or self-care (01) ==
LOC: COL.ER 14:33
DX: E11.621 Type 2 diabetes mellitus with foot ulcer (principal); L97.519 Non-pressure chronic ulcer of other part of right foot with unspecified severity; I10 Essential (primary) hypertension; I48.91 Unspecified atrial fibrillation; I25.10 Atherosclerotic heart disease of native coronary artery without angina pectoris; F17.210 Nicotine dependence, cigarettes, uncomplicated

== ENCOUNTER 2019-09-16 12:37 | Emergency (ER) | payer MEDICARE, MEDICAID ==
[~2019-09-16] VITALS: Ht 180.3 cm; Wt 73.2 kg
[2019-09-16 12:48] VITALS: TEMP 98.7
[2019-09-16 16:30] VITALS: BP 102/72; PULSE 84
== END 2019-09-16 16:30 | disposition home or self-care (01) ==
LOC: COL.ER 12:37
DX: S43.085A Other dislocation of left shoulder joint, initial encounter (principal); I25.10 Atherosclerotic heart disease of native coronary artery without angina pectoris; X58.XXXA Exposure to other specified factors, initial encounter; Y92.149 Unspecified place in prison as the place of occurrence of the external cause
CPT/HCPCS: J2704; J3010; J7040

== ENCOUNTER 2019-09-30 09:31 | Observation (INO) | payer MEDICARE, MEDICAID ==
[~2019-09-30] VITALS: Ht 180.3 cm; Wt 76.7 kg
[2019-09-30 10:24] VITALS: BP 129/79; PULSE 96; TEMP 98.6
[2019-09-30 12:17] LABS: BASO % 0.3 % (0.0-2.0); EOS # 0.3 (0.0-0.7); EOS % 3.2 % (0-4.0); GRAN # 8.3 (1.4-6.5); LYMPH # 0.8 (1.2-3.4); LYMPH % 8.4 % (20.0-51.0); MEAN CELL VOLUME 77 fl (80.0-100.0); MEAN CORPUSCULAR HGB CONC 29 g/dl (33.0-37.0); MEAN PLATELET VOLUME 9.1 fl (7.4-10.4); MONO # 0.2 (0.1-0.6); MONO % 2.3 % (1.7-9.3); PLATELET COUNT 227 K/mm3 (130-400); RED BLOOD COUNT 4.47 M/mm3 (4.20-5.60); REDCELL DISTRIBUTION WIDTH-CV 19.7 % (11.5-14.5)
[2019-09-30 12:19] LABS: HEMATOCRIT 34.2 % (42.0-52.0); HEMOGLOBIN 9.9 g/dl (13.5-18.0); MEAN CORPUSCULAR HEMOGLOBIN 22 pg (27.0-31.0)
[2019-09-30 12:22] LABS: ALANINE AMINOTRANSFERASE 89 U/L (21-72); ALBUMIN 3.9 gm/dL (3.5-5.0); ALKALINE PHOSPHATASE 131 U/L (50-136); ANION GAP 8 mmol/L (7-16); AST,SGOT 53 U/L (15-37); BILIRUBIN,TOTAL 0.3 mg/dL (0.0-1.0); BLOOD UREA NITROGEN 12 mg/dL (9-20); CARBON DIOXIDE 25 mmol/L (22-30); CHLORIDE 104 mmol/L (98-107); CREATININE, serum 0.69 (0.66-1.25); GLUCOSE 166 mg/dL (74-106); MAGNESIUM 1.8 mg/dL (1.6-2.3); POTASSIUM 5.1 mmol/L (3.4-5.0); SODIUM 137 mmol/L (137-145)
[2019-09-30 12:23] LABS: C-REACTIVE PROTEIN < 0.5 mg/dL (0.0-0.9)
[2019-09-30] MEDS ORDERED: DIFLUCAN 100MG100 MG PO (12:29)
[2019-09-30] MEDS ORDERED: BACTRIM DS 8001 TAB PO (12:29)
[2019-09-30 12:37] LABS: ERYTHROCYTE SEDIMENTATION RATE 11 mm/hr (0-15)
--- NOTE | 2019-09-30 14:00 | NUR ---
Patient alert and oriented, answers questions appropriately. See assessment. RLE with very scant/mild redness noted. Right great toe with diabetic ulcer noted, small amount of redness, blackened center, no drainage noted. FWB. Patient c/o numbness to BLE which is chronic. Dr Stacy here to see patient. No c/o at this time.
--- NOTE | 2019-09-30 15:00 | NUR ---
Vancomycin Initial Dosing Pharmacy Note Ordering provider: Yury Stacy MD Indication/duration: Bone/joint infection, failed initial treatment. LABS: eCrCl ~140 mL/min Recommendation: Loading dose: 1 gram given upon arrival 09/30/19 Maintenance dose: 1.25 grams Q8H starting 09/20/19 @ 1700 Trough goal: 15-20 ug/mL with first level to be drawin 10/01/19 @ 16:30. Will continue to follow.
[2019-09-30 15:57] VITALS: BP 105/74; PULSE 85; TEMP 97.3
[2019-09-30 20:48] VITALS: BP 116/84; PULSE 88; TEMP 98.3
--- NOTE | 2019-09-30 21:37 | NUR ---
Pt assessment completed. Alert and oriented with VSS. Restarted new IV in L forearm as old on infiltrated. Vanc completed and is now INT til next dose. PRN norco given. Denies needs at this time. Call light within reach, will continue to monitor
[2019-10-01 00:12] VITALS: BP 121/70; PULSE 85; TEMP 98.3
[2019-10-01] MEDS ORDERED: XANAX 1MG1 MG PO (01:41)
[2019-10-01 03:37] VITALS: BP 108/71; PULSE 80; TEMP 97.9
--- NOTE | 2019-10-01 04:15 | NUR ---
Pt sleeping in bed. Call light within reach, will continue to monitor
--- NOTE | 2019-10-01 06:37 | NUR ---
pt iv infiltrated in left forearm, iv restarted in right forearm by hospitalist. flushes well. CD&I.
[2019-10-01 07:32] VITALS: BP 103/78; PULSE 79; TEMP 97.9
--- NOTE | 2019-10-01 08:20 | NUR ---
Patient in bed resting. Alert and oriented x 3. Shift assessment complete. Small dime sized ulcer noted to right great toe, blackened center with no drainage noted. Pain medication was given this AM. Patient states relief from pain. Denies further needs at this time.
[2019-10-01 11:15] VITALS: BP 112/82; PULSE 75; TEMP 98.3
[2019-10-01] MEDS ORDERED: BACTRIM DS 8001 TAB PO (11:41)
[2019-10-01] MEDS ORDERED: ULTRAM 50MG TAB50 MG PO (11:41)
[2019-10-01 12:48] VITALS: BP 112/82; PULSE 75; TEMP 98.3
--- NOTE | 2019-10-01 13:10 | NUR ---
Patient will be discharging back to police custody. Discharge packet provided to officer. INT to right forarm discontinued, catheter tip intact. Post op shoe placed on right foot per orders. Denies further needs at this time. Patient out with officer and surgical staff.
== END 2019-10-01 13:10 ==
LOC: SURG 09:31
PROVIDERS: ADMIT Internal Medicine
DX: E11.622 Type 2 diabetes mellitus with other skin ulcer (principal); L98.499 Non-pressure chronic ulcer of skin of other sites with unspecified severity; I25.10 Atherosclerotic heart disease of native coronary artery without angina pectoris; I48.91 Unspecified atrial fibrillation; I10 Essential (primary) hypertension; J44.9 Chronic obstructive pulmonary disease, unspecified; F32.9 Major depressive disorder, single episode, unspecified; F41.9 Anxiety disorder, unspecified; D72.1 Eosinophilia; E78.5 Hyperlipidemia, unspecified; F17.210 Nicotine dependence, cigarettes, uncomplicated; Z88.8 Allergy status to other drugs, medicaments and biological substances; Z79.84 Long term (current) use of oral hypoglycemic drugs; Z79.02 Long term (current) use of antithrombotics/antiplatelets; Z79.52 Long term (current) use of systemic steroids; Z85.828 Personal history of other malignant neoplasm of skin; Z79.82 Long term (current) use of aspirin; Z98.52 Vasectomy status; Z90.49 Acquired absence of other specified parts of digestive tract; Z88.2 Allergy status to sulfonamides
CPT/HCPCS: A4216; G0378; G0379; J0696; J1644; J1815; J3370; J7050; J7512

== ENCOUNTER 2020-02-06 12:25 | Emergency (ER) | payer MEDICARE ==
[~2020-02-06] VITALS: Ht 172.7 cm; Wt 72.7 kg
[~2020-02-06 12:25] MED LIST changes: +BACTRIM DS 8001 TAB PO; +DIFLUCAN 100MG100 MG PO
[2020-02-06 13:01] VITALS: BP 120/85; TEMP 98.2
[2020-02-06] MEDS ORDERED: CEPHALEXIN500 M1 PO (13:30)
[2020-02-06] MEDS ORDERED: NORCO 325 MG-51 TAB PO (13:43)
[2020-02-06 13:55] VITALS: PULSE 94
== END 2020-02-06 13:54 | disposition home or self-care (01) ==
LOC: COL.ER 12:25
DX: L02.414 Cutaneous abscess of left upper limb (principal); E11.9 Type 2 diabetes mellitus without complications; F32.9 Major depressive disorder, single episode, unspecified; F17.210 Nicotine dependence, cigarettes, uncomplicated; Z79.84 Long term (current) use of oral hypoglycemic drugs; Z79.02 Long term (current) use of antithrombotics/antiplatelets

== ENCOUNTER 2020-04-03 19:37 | Emergency (ER) | payer MEDICARE ==
[~2020-04-03] VITALS: Ht 180.3 cm; Wt 75.0 kg
[2020-04-03] MEDS ORDERED: CEPHALEXIN500 M1 PO (20:16)
[2020-04-03] MEDS ORDERED: BACTRIM DS 8001 TAB PO (20:16)
[2020-04-03 20:27] VITALS: BP 158/70; PULSE 78; TEMP 98
== END 2020-04-03 20:28 | disposition home or self-care (01) ==
LOC: COL.ER 19:37
DX: L08.9 Local infection of the skin and subcutaneous tissue, unspecified (principal); L02.511 Cutaneous abscess of right hand; F17.210 Nicotine dependence, cigarettes, uncomplicated; Z79.84 Long term (current) use of oral hypoglycemic drugs; Z79.02 Long term (current) use of antithrombotics/antiplatelets; Z79.52 Long term (current) use of systemic steroids

== ENCOUNTER 2020-04-17 14:02 | Inpatient (IN) | payer MEDICARE ==
[~2020-04-17] VITALS: Ht 180.3 cm; Wt 79.3 kg
[2020-04-17] MEDS ORDERED: SEROQUEL50 MG PO (17:13)
[2020-04-17] MEDS ORDERED: ZOLOFT 50MG50 MG PO (17:13)
[2020-04-17] MEDS ORDERED: NORVASC 5MG5 MG/TAB PO (17:15)
[2020-04-17 17:42] VITALS: BP 101/65; PULSE 80; TEMP 98
[2020-04-17 18:16] LABS: EOS # 0.3 (0.0-0.7); EOS % 3.8 % (0-4.0); GRAN % 76.7 % (42.2-75.2); LYMPH # 1.3 (1.2-3.4); MEAN CELL VOLUME 74 fl (80.0-100.0); MEAN CORPUSCULAR HGB CONC 28 g/dl (33.0-37.0); MEAN PLATELET VOLUME 9.5 fl (7.4-10.4); MONO # 0.2 (0.1-0.6); PLATELET COUNT 186 K/mm3 (130-400); RED BLOOD COUNT 4.11 M/mm3 (4.20-5.60); REDCELL DISTRIBUTION WIDTH-CV 20.1 % (11.5-14.5)
[2020-04-17 18:36] LABS: ALBUMIN 2.7 gm/dL (3.5-5.0); BILIRUBIN,TOTAL 0.3 mg/dL (0.0-1.0); C-REACTIVE PROTEIN 1.3 mg/dL (0.0-0.9); CALCIUM 7.9 mg/dL (8.4-10.2); CREATININE, serum 0.53 (0.66-1.25); POTASSIUM 3.5 mmol/L (3.4-5.0); TOTAL PROTEIN 5.6 gm/dL (6.4-8.2)
[2020-04-17 18:39] LABS: HEMATOCRIT 30.5 % (42.0-52.0); HEMOGLOBIN 8.6 g/dl (13.5-18.0); MEAN CORPUSCULAR HEMOGLOBIN 21 pg (27.0-31.0)
[2020-04-17 18:40] LABS: ERYTHROCYTE SEDIMENTATION RATE 6 mm/hr (0-15)
--- NOTE | 2020-04-17 19:18 | NUR ---
Patient currently resting in bed. Patient rouses easily, is alert and oriented while awake. Patient is plesent and cooperative. IV placed in LFA in one attempt, patient tolerated well. Patient denies needs at this time, call light within reach.
[2020-04-17 20:00] VITALS: BP 101/66; PULSE 73; TEMP 98.5
[2020-04-18] VITALS (14 sets, daily range): BP systolic 71–127; BP diastolic 44–79; PULSE 65–90; TEMP 98.2–99
--- NOTE | 2020-04-18 05:42 | NUR ---
Patient noted to sleep well throughout the night. Black area noted to pad of right thumb. Several generalized wounds noted to bilateral arms and legs. Diabetic ulcer noted to right great toe. This nurse dressed site with gauze and tape per patient. He states thats how he dresses it at home. 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 IV antibiotics given per orders. Patient denies pain. Denies any further needs. Will continue to monitor.
--- NOTE | 2020-04-18 08:00 | NUR ---
Medicated with [place] for c/o right hand pain. Orthopedics saw patient. Made NPO.
[2020-04-18 09:35] LABS: BASO % 0.1 % (0.0-2.0); EOS # 0.4 (0.0-0.7); EOS % 5.6 % (0-4.0); GRAN % 66.2 % (42.2-75.2); LYMPH # 1.8 (1.2-3.4); LYMPH % 23.4 % (20.0-51.0); MEAN CELL VOLUME 74 fl (80.0-100.0); MEAN CORPUSCULAR HGB CONC 28 g/dl (33.0-37.0); MEAN PLATELET VOLUME 9.3 fl (7.4-10.4); MONO # 0.3 (0.1-0.6); MONO % 3.9 % (1.7-9.3); PLATELET COUNT 193 K/mm3 (130-400); RED BLOOD COUNT 4.57 M/mm3 (4.20-5.60); REDCELL DISTRIBUTION WIDTH-CV 20.3 % (11.5-14.5)
[2020-04-18 09:42] LABS: CALCIUM 8.4 mg/dL (8.4-10.2); CREATININE, serum 0.5 (0.66-1.25); POTASSIUM 4.4 mmol/L (3.4-5.0)
[2020-04-18 09:47] LABS: HEMATOCRIT 33.9 % (42.0-52.0); HEMOGLOBIN 9.5 g/dl (13.5-18.0); MEAN CORPUSCULAR HEMOGLOBIN 21 pg (27.0-31.0)
--- NOTE | 2020-04-18 12:15 | NUR ---
To surgery per bed with OR staff.
--- NOTE | 2020-04-18 14:55 | NUR ---
Returned to room from PACU. VSS. Complained of intense pain in right thumb. Dressing CDI. Right arm elevated on pillows.
--- NOTE | 2020-04-18 15:10 | NUR ---
Medicated with IV Dilaudid for pain. Drowsy after med.
--- NOTE | 2020-04-18 18:30 | NUR ---
Right hand pain improved after po and IV pain medication. VSS. Eating dinner.
[2020-04-19] VITALS: BP 103/66; PULSE 67; TEMP 98
--- NOTE | 2020-04-19 03:08 | NUR ---
Patient has been awake off and on throughout the shift. PRN pain medication administered frequently, but per orders. Patient states the oral pain medication helps, but he is still having pain rating 8/10 to right thumb. States he thinks it may be phantom pain, but he isn't sure. Education provided on pain medication and phantom pain. States understanding, but continues to request breakthrough Dilaudid. Patient ambulates independently in the room. Dressing to right thumb is clean, dry, and intact. Dressing to right great toe is also clean, dry, and intact. PRN [place] is switched to PRN Oxycodone d/t cirrhosis. Patient's blood glucose level noted to be high at HS. Patient noted to have candy at bedside. Education about healthy snacks provided to patient. At about midnight patient requested a sandwich box and a pepsi. Patient educated that pepsi has a lot of sugar in it, but patient continued to ask for the pepsi. More education is needed for patient. Will continue to monitor patient.
[2020-04-19 04:38] VITALS: BP 116/72; PULSE 76; TEMP 97.9
--- NOTE | 2020-04-19 06:02 | NUR ---
0500 BLOOD SUGAR [id number]
[2020-04-19 07:36] LABS: BASO % 0.1 % (0.0-2.0); EOS # 0.8 (0.0-0.7); EOS % 10.1 % (0-4.0); GRAN % 64.8 % (42.2-75.2); LYMPH # 1.6 (1.2-3.4); MEAN CELL VOLUME 77 fl (80.0-100.0); MEAN CORPUSCULAR HGB CONC 27 g/dl (33.0-37.0); MEAN PLATELET VOLUME 10.2 fl (7.4-10.4); MONO # 0.3 (0.1-0.6); MONO % 3.5 % (1.7-9.3); PLATELET COUNT 172 K/mm3 (130-400); RED BLOOD COUNT 4.06 M/mm3 (4.20-5.60)
[2020-04-19 07:48] LABS: CALCIUM 8.1 mg/dL (8.4-10.2); CREATININE, serum 0.56 (0.66-1.25); POTASSIUM 4.1 mmol/L (3.4-5.0)
[2020-04-19 07:49] LABS: HEMATOCRIT 31.1 % (42.0-52.0); HEMOGLOBIN 8.4 g/dl (13.5-18.0); MEAN CORPUSCULAR HEMOGLOBIN 21 pg (27.0-31.0)
[2020-04-19 08:13] VITALS: BP 100/65; PULSE 71; TEMP 98.1
[2020-04-19] MEDS ORDERED: ROXICODONE 55 MG/TAB PO (08:48)
--- NOTE | 2020-04-19 10:30 | NUR ---
Pain in right thumb improved with prn pain meds. Right hand dressing CDI. CMS intact. Orthopedics and hospitalist saw patient. Home instructions reviewed. Dismissed to home per w/c with friend.
== END 2020-04-19 10:30 | disposition home or self-care (01) | DRG 256 ==
LOC: MEDICAL 14:02 → SURG 15:33
PROVIDERS: Orthopaedic Surgery Sports Medicine; ADMIT Family Medicine
PROC: 0X6L0Z3 Detachment at Right Thumb, Low, Open Approach (ICD-10-PCS; principal; 2020-04-18 13:00)
DX: I73.1 Thromboangiitis obliterans [Buerger's disease] (principal); I70.268 Atherosclerosis of native arteries of extremities with gangrene, other extremity; L03.011 Cellulitis of right finger; B95.61 Methicillin susceptible Staphylococcus aureus infection as the cause of diseases classified elsewhere; M06.9 Rheumatoid arthritis, unspecified; E11.42 Type 2 diabetes mellitus with diabetic polyneuropathy; Z79.84 Long term (current) use of oral hypoglycemic drugs; F41.8 Other specified anxiety disorders; I25.10 Atherosclerotic heart disease of native coronary artery without angina pectoris; Z95.5 Presence of coronary angioplasty implant and graft; I10 Essential (primary) hypertension; K70.30 Alcoholic cirrhosis of liver without ascites; F10.10 Alcohol abuse, uncomplicated; K21.9 Gastro-esophageal reflux disease without esophagitis; F19.10 Other psychoactive substance abuse, uncomplicated; L98.499 Non-pressure chronic ulcer of skin of other sites with unspecified severity; F17.210 Nicotine dependence, cigarettes, uncomplicated; Z88.8 Allergy status to other drugs, medicaments and biological substances; Z88.6 Allergy status to analgesic agent; Z91.030 Bee allergy status; Z79.52 Long term (current) use of systemic steroids; J44.9 Chronic obstructive pulmonary disease, unspecified; D63.8 Anemia in other chronic diseases classified elsewhere; E11.621 Type 2 diabetes mellitus with foot ulcer
CPT/HCPCS: 99222-AI; 99232-AI; A9284; J0690; J1170; J1650; J1720; J1815; J2405; J2704; J3010; J7030; J7512

== ENCOUNTER 2020-06-08 09:09 | Emergency (ER) | payer MEDICARE ==
[~2020-06-08] VITALS: Ht 180.3 cm; Wt 73.6 kg
[~2020-06-08 09:09] MED LIST changes: +NORVASC 5MG5 MG/TAB PO; +SEROQUEL50 MG PO; +ZOLOFT 50MG50 MG PO
[2020-06-08 09:17] VITALS: BP 117/85; TEMP 98.5
[2020-06-08 09:46] LABS: BASO % 0.3 % (0.0-2.0); EOS % 13.6 % (0-4.0); GRAN # 10.3 (1.4-6.5); GRAN % 71.7 % (42.2-75.2); HEMATOCRIT 38.5 % (42.0-52.0); HEMOGLOBIN 10.8 g/dl (13.5-18.0); LYMPH # 1.6 (1.2-3.4); LYMPH % 11.1 % (20.0-51.0); MEAN CELL VOLUME 76 fl (80.0-100.0); MEAN CORPUSCULAR HEMOGLOBIN 21 pg (27.0-31.0); MEAN CORPUSCULAR HGB CONC 28 g/dl (33.0-37.0); MONO # 0.4 (0.1-0.6); PLATELET COUNT 267 K/mm3 (130-400); RED BLOOD COUNT 5.06 M/mm3 (4.20-5.60)
[2020-06-08 09:56] LABS: ALBUMIN 3.4 gm/dL (3.5-5.0); BILIRUBIN,TOTAL 0.7 mg/dL (0.0-1.0); C-REACTIVE PROTEIN 1.9 mg/dL (0.0-0.9); CALCIUM 8.8 mg/dL (8.4-10.2); CREATININE, serum 0.45 (0.66-1.25); POTASSIUM 4.1 mmol/L (3.4-5.0); TOTAL PROTEIN 6.6 gm/dL (6.4-8.2)
[2020-06-08 09:59] LABS: INR 0.9 (0.8-3.0); PROTHROMBIN TIME 10.2 SECONDS (9.7-12.8)
[2020-06-08] MEDS ORDERED: DOXYCYCLINE 10100 MG PO (10:30)
[2020-06-08 10:37] VITALS: PULSE 90
[2020-06-08] MEDS ORDERED: OXY IR5 MG PO (10:37)
== END 2020-06-08 10:37 | disposition home or self-care (01) ==
LOC: COL.ER 09:09
PROVIDERS: Family Medicine
DX: L03.116 Cellulitis of left lower limb (principal); E11.9 Type 2 diabetes mellitus without complications; I10 Essential (primary) hypertension; F17.210 Nicotine dependence, cigarettes, uncomplicated; Z79.02 Long term (current) use of antithrombotics/antiplatelets; Z88.6 Allergy status to analgesic agent; Z79.52 Long term (current) use of systemic steroids; Z79.84 Long term (current) use of oral hypoglycemic drugs
CPT/HCPCS: J0696

== ENCOUNTER → 2020-06-12 | Outpatient (CLI) | payer MEDICARE ==
[2020-06-12 17:03] LABS: BASO % 0.1 % (0.0-2.0); EOS # 1.1 (0.0-0.7); EOS % 13.9 % (0-4.0); GRAN # 4.5 (1.4-6.5); GRAN % 59.1 % (42.2-75.2); LYMPH # 1.6 (1.2-3.4); LYMPH % 20.7 % (20.0-51.0); MEAN CELL VOLUME 75 fl (80.0-100.0); MEAN CORPUSCULAR HGB CONC 28 g/dl (33.0-37.0); MEAN PLATELET VOLUME 9.1 fl (7.4-10.4); MONO # 0.4 (0.1-0.6); MONO % 5.5 % (1.7-9.3); PLATELET COUNT 233 K/mm3 (130-400); RED BLOOD COUNT 4.65 M/mm3 (4.20-5.60); REDCELL DISTRIBUTION WIDTH-CV 21.7 % (11.5-14.5)
[2020-06-12 17:06] LABS: HEMOGLOBIN 9.8 g/dl (13.5-18.0); MEAN CORPUSCULAR HEMOGLOBIN 21 pg (27.0-31.0)
[2020-06-12 17:16] LABS: ALBUMIN 3.5 gm/dL (3.5-5.0); BILIRUBIN,TOTAL 0.6 mg/dL (0.0-1.0); CALCIUM 8.7 mg/dL (8.4-10.2); CREATININE, serum 0.54 (0.66-1.25); TOTAL PROTEIN 6.8 gm/dL (6.4-8.2)
== END ==
LOC: COL.LAB 16:43
PROVIDERS: Family Medicine
DX: L03.116 Cellulitis of left lower limb (principal)

== ENCOUNTER 2020-08-19 14:37 | Emergency (ER) | payer MEDICARE ==
[~2020-08-19] VITALS: Ht 180.3 cm; Wt 70.5 kg
[2020-08-19] MEDS ORDERED: BENADRYL50 MG PO (14:52)
[2020-08-19] MEDS ORDERED: PREDNISONE20 MG PO (16:28)
[2020-08-19 16:30] VITALS: BP 117/88; PULSE 86; TEMP 97.8
[2020-08-19] MEDS ORDERED: NORCO 325 MG-51 TAB PO (16:45)
== END 2020-08-19 16:38 | disposition home or self-care (01) ==
LOC: COL.ER 14:37
DX: T78.40XA Allergy, unspecified, initial encounter (principal); F17.210 Nicotine dependence, cigarettes, uncomplicated; Z88.6 Allergy status to analgesic agent; Z88.8 Allergy status to other drugs, medicaments and biological substances; Z79.84 Long term (current) use of oral hypoglycemic drugs; Z79.02 Long term (current) use of antithrombotics/antiplatelets
CPT/HCPCS: J1100

== ENCOUNTER 2020-08-24 01:55 | Emergency (ER) | payer MEDICARE ==
[~2020-08-24] VITALS: Ht 180.3 cm; Wt 71.8 kg
[2020-08-24 02:01] VITALS: BP 109/67; TEMP 97.8
[2020-08-24 03:11] VITALS: PULSE 78
== END 2020-08-24 03:11 | disposition home or self-care (01) ==
LOC: COL.ER 01:55
DX: T15.01XA Foreign body in cornea, right eye, initial encounter (principal); F17.200 Nicotine dependence, unspecified, uncomplicated; Z23 Encounter for immunization; Z90.49 Acquired absence of other specified parts of digestive tract; Z95.5 Presence of coronary angioplasty implant and graft; Z88.6 Allergy status to analgesic agent; Z88.8 Allergy status to other drugs, medicaments and biological substances; Z79.02 Long term (current) use of antithrombotics/antiplatelets; Z79.84 Long term (current) use of oral hypoglycemic drugs; Z79.891 Long term (current) use of opiate analgesic; W45.8XXA Other foreign body or object entering through skin, initial encounter